=== PATIENT | female | born 1960 | race American Indian/Alaskan Native ===

== ENCOUNTER 2017-01-13 09:47 | Outpatient (CLI) | payer OTHER ==
--- NOTE | 2017-01-13 14:25 | Mammography Report ---
BILATERAL DIGITAL SCREENING MAMMOGRAM with CAD: 01/13/17 09:47:00 CLINICAL: Routine screening. COMPARISON: 03/28/14 FINDINGS: The breasts are predominately fatty with a few bilateral scattered fibroglandular densities.No mass, architectural distortion or suspicious calcifications. IMPRESSION: No mammographic evidence of malignancy. BI-RADS CATEGORY: 1 -- Negative RECOMMENDATION: Routine mammographic screening in one year. COMMENT: Patient follow-up letters are generated by our [employer] application.
== END 2017-01-13 09:48 | disposition home or self-care (01) ==
LOC: SPVWC 09:47
PROVIDERS: ATTEND Family Medicine
DX: Z12.31 Encounter for screening mammogram for malignant neoplasm of breast (principal)
CPT/HCPCS: 77067; G0202

== ENCOUNTER 2021-04-15 11:05 | Inpatient (IN) | payer OTHER ==
--- NOTE | 2021-04-15 11:29 | Emergency Department Report ---
ED Altered Mental Status HPI - General Chief Complaint: Altered Mental Status Stated Complaint: AMS Time Seen by Provider: 04/15/21 11:09 Source: EMS Mode of arrival: Stretcher Limitations: Altered Mental Status - History of Present Illness Initial Comments: 60-year-old female, history of hypertension, diabetes, seizure disorder, presents to ED with altered mental status. Last known well time 2:30 PM on yesterday. Patient's niece had made plans with the patient to take her grocery shopping this morning. When she arrived at patient's home, patient was speaking incoherently, had a apparently soiled herself. Niece states that about a year ago patient's glucose was very high. Patient able to follow directions, however speech is incoherent. Stroke alert called. MD Complaint: altered mental status -: unknown Severity: moderate Consistency of Symptoms: constant Context: diabetes, seizure disorder - Related Data Home Medications Medication Instructions Recorded Confirmed Last Taken Klor-Con M20 10 meq 04/15/21 Unknown Omeprazole 04/15/21 Unknown Singulair 04/15/21 Unknown Slow Release Iron 04/15/21 Unknown cloNIDine 0.1 mg PO 04/15/21 Unknown hydrALAZINE 50 mg PO 04/15/21 Unknown Allergies Allergy/AdvReac Type Severity Reaction Status Date / Time No Known Allergies Allergy Verified 04/15/21 13:58 ED Review of Systems ROS: Stated complaint: AMS Other details as noted in HPI Comment: Unobtainable due to pts medical conditions ED Past Medical Hx - Medications Home Medications: Home Medications Medication Instructions Recorded Confirmed Last Taken Type Klor-Con M20 10 meq 04/15/21 Unknown History Omeprazole 04/15/21 Unknown History Singulair 04/15/21 Unknown History Slow Release Iron 04/15/21 Unknown History cloNIDine 0.1 mg PO 04/15/21 Unknown History hydrALAZINE 50 mg PO 04/15/21 Unknown History ED Physical Exam - General Limitations: Altered Mental Status General appearance: alert, in no apparent distress - Head Head exam: Present: atraumatic, normocephalic - Eye Eye exam: Present: normal appearance, PERRL, EOMI - ENT ENT exam: Present: mucous membranes moist - Neck Neck exam: Present: normal inspection - Respiratory Respiratory exam: Present: normal lung sounds bilaterally. Absent: respiratory distress - Cardiovascular Cardiovascular Exam: Present: normal rhythm, tachycardia - GI/Abdominal GI/Abdominal exam: Present: soft. Absent: distended, tenderness - Extremities Exam Extremities exam: Present: normal inspection - Neurological Exam Neurological exam: Present: alert, altered, other (Slight facial droop noted, speech is unintelligible) - Psychiatric Psychiatric exam: Present: flat affect - Skin Skin exam: Present: warm, dry, intact, normal color ED Course Vital Signs 04/15/21 04/15/21 04/15/21 11:14 11:23 11:50 Temperature 98 F Pulse Rate 107 H 109 H 98 H Respiratory 16 15 Rate Blood Pressure Blood Pressure 194/97 199/97 206/121 [Right] O2 Sat by Pulse 96 96 Oximetry 04/15/21 04/15/21 04/15/21 12:02 12:30 12:47 Temperature Pulse Rate 102 H 104 H Respiratory 14 17 Rate Blood Pressure 209/115 Blood Pressure 215/108 [Right] O2 Sat by Pulse 97 96 Oximetry 04/15/21 04/15/21 04/15/21 13:01 13:15 13:31 Temperature Pulse Rate 93 H 86 90 Respiratory 22 15 16 Rate Blood Pressure 214/98 212/94 206/93 Blood Pressure [Right] O2 Sat by Pulse 94 95 96 Oximetry 04/15/21 04/15/21 04/15/21 13:45 13:58 14:01 Temperature Pulse Rate 90 81 88 Respiratory 16 17 Rate Blood Pressure 201/82 193/83 193/83 Blood Pressure [Right] O2 Sat by Pulse 96 97 Oximetry 04/15/21 04/15/21 04/15/21 14:15 14:31 14:45 Temperature Pulse Rate 84 84 86 Respiratory 14 15 16 Rate Blood Pressure 181/66 173/74 180/90 Blood Pressure [Right] O2 Sat by Pulse 95 97 96 Oximetry 04/15/21 04/15/21 04/15/21 15:01 15:15 15:31 Temperature Pulse Rate 87 86 85 Respiratory 19 15 16 Rate Blood Pressure 150/73 159/82 164/78 Blood Pressure [Right] O2 Sat by Pulse 97 96 96 Oximetry 04/15/21 04/15/21 15:45 15:51 Temperature Pulse Rate 83 84 Respiratory 16 19 Rate Blood Pressure 162/85 169/80 Blood Pressure [Right] O2 Sat by Pulse 94 94 Oximetry - Lab Data Result diagrams: 04/15/21 11:50 04/15/21 11:50 Lab Results 04/15/21 04/15/21 04/15/21 Range/Units 11:24 11:50 11:50 WBC 9.2 (4.5-11.0) K/mm3 RBC 5.43 H (3.65-5.03) M/mm3 Hgb 14.1 (10.1-14.3) gm/dl Hct 45.2 H (30.3-42.9) % MCV 83 (79-97) fl MCH 26 L (28-32) pg MCHC 31 (30-34) % RDW 15.5 H (13.2-15.2) % Plt Count 195 (140-440) K/mm3 Lymph % (Auto) 6.8 L (13.4-35.0) % [place] % (Auto) 2.9 (0.0-7.3) % Eos % (Auto) 0.0 (0.0-4.3) % Baso % (Auto) 0.5 (0.0-1.8) % Lymph # (Auto) 0.6 L (1.2-5.4) K/mm3 [place] # (Auto) 0.3 (0.0-0.8) K/mm3 Eos # (Auto) 0.0 (0.0-0.4) K/mm3 Baso # (Auto) 0.0 (0.0-0.1) K/mm3 Seg Neutrophils % 89.8 H (40.0-70.0) % Seg Neutrophils # 8.2 H (1.8-7.7) K/mm3 PT 13.0 (12.2-14.9) Sec. INR 0.88 (0.87-1.13) APTT 27.5 (24.2-36.6) Sec. Thrombin Time 20.1 H (15.1-19.6) Sec. VBG pH (7.320-7.420) Sodium (137-145) mmol/L Potassium (3.6-5.0) mmol/L Chloride (98-107) mmol/L Carbon Dioxide (22-30) mmol/L Anion Gap mmol/L BUN (7-17) mg/dL Creatinine (0.6-1.2) mg/dL Estimated GFR ml/min BUN/Creatinine Ratio % Glucose (65-100) mg/dL POC Glucose 548 H (70-105) mg/dL Ketones Quantitative (Negative) Calcium (8.4-10.2) mg/dL Total Bilirubin (0.1-1.2) mg/dL Direct Bilirubin (0-0.2) mg/dL Indirect Bilirubin mg/dL AST (5-40) units/L ALT (7-56) units/L Alkaline Phosphatase (35-129) units/L Total Creatine Kinase (30-135) units/L CK-MB (CK-2) (0.0-4.0) ng/mL CK-MB (CK-2) Rel Index (0-4) Troponin T (0.00-0.029) ng/mL Total Protein (6.3-8.2) g/dL Albumin (3.9-5) g/dL Albumin/Globulin Ratio % 04/15/21 04/15/21 04/15/21 Range/Units 11:50 11:50 11:50 WBC (4.5-11.0) K/mm3 RBC (3.65-5.03) M/mm3 Hgb (10.1-14.3) gm/dl Hct (30.3-42.9) % MCV (79-97) fl MCH (28-32) pg MCHC (30-34) % RDW (13.2-15.2) % Plt Count (140-440) K/mm3 Lymph % (Auto) (13.4-35.0) % [place] % (Auto) (0.0-7.3) % Eos % (Auto) (0.0-4.3) % Baso % (Auto) (0.0-1.8) % Lymph # (Auto) (1.2-5.4) K/mm3 [place] # (Auto) (0.0-0.8) K/mm3 Eos # (Auto) (0.0-0.4) K/mm3 Baso # (Auto) (0.0-0.1) K/mm3 Seg Neutrophils % (40.0-70.0) % Seg Neutrophils # (1.8-7.7) K/mm3 PT (12.2-14.9) Sec. INR (0.87-1.13) APTT (24.2-36.6) Sec. Thrombin Time (15.1-19.6) Sec. VBG pH 7.412 (7.320-7.420) Sodium 136 L (137-145) mmol/L Potassium 4.5 (3.6-5.0) mmol/L Chloride 99.9 (98-107) mmol/L Carbon Dioxide 23 (22-30) mmol/L Anion Gap 18 mmol/L BUN 13 (7-17) mg/dL Creatinine 0.9 (0.6-1.2) mg/dL Estimated GFR > 60 ml/min BUN/Creatinine Ratio 14 % Glucose 549 H* (65-100) mg/dL POC Glucose (70-105) mg/dL Ketones Quantitative Negative (Negative) Calcium 8.9 (8.4-10.2) mg/dL Total Bilirubin 0.20 (0.1-1.2) mg/dL Direct Bilirubin < 0.2 (0-0.2) mg/dL Indirect Bilirubin 0.0 mg/dL AST 14 (5-40) units/L ALT 15 (7-56) units/L Alkaline Phosphatase 186 H (35-129) units/L Total Creatine Kinase 46 (30-135) units/L CK-MB (CK-2) 1.3 (0.0-4.0) ng/mL CK-MB (CK-2) Rel Index 2.8 (0-4) Troponin T < 0.010 (0.00-0.029) ng/mL Total Protein 7.6 (6.3-8.2) g/dL Albumin 3.5 L (3.9-5) g/dL Albumin/Globulin Ratio 0.9 % - EKG Data -: EKG Interpreted by Ne EKG shows normal: sinus rhythm, intervals, QRS complexes Rate: normal Interpretation: nonspecific ST-T wave robert, LVH - Radiology Data Radiology results: report reviewed, image reviewed - Medical Decision Making 60-year-old female presents to ED with altered mental status. Stroke alert was called upon arrival. Patient was seen and evaluated by teleneurologist. Patient not a candidate for TPA. CTAs showed no large vessel occlusion. Patient hyperglycemic, however not in DKA. Patient was given labetalol with improvement of blood pressure. Differential also includes seizure as patient has reported history of seizure disorder. Patient was given Keppra 1000 mg load. She will be admitted by Dr. Valdes, hospitalist, for further evaluation. - Differential Diagnosis seizure, CVA, DKA Critical Care Time: Yes Critical care time in (mins) excluding proc time.: 35 Critical care attestation.: If time is entered above; I have spent that time in minutes in the direct care of this critically ill patient, excluding procedure time. Critical Care Time: 35 min ED Disposition Clinical Impression: Acute encephalopathy, Hyperglycemia, Hypertensive emergency Disposition: ADMITTED INPATIENT Is pt being admited?: Yes Condition: Stable Time of Disposition: 12:59
--- NOTE | 2021-04-15 11:47 | Cat Scan Report ---
CT HEAD WITHOUT CONTRAST INDICATION : CODE STROKE CALL [phone]. TECHNIQUE: Axial imaging performed from the skull apex through the skull base without the use of con trast. Sagittal and coronal reformatted images. All CT scans at this location are performed using C T dose reduction for ALARA by means of automated exposure control. COMPARISON: None FINDINGS: Parenchyma: There is moderate diffuse volume loss and mild chronic microvascular ischemic changes in the white matter. No acute parenchymal abnormality, hemorrhage, mass or extra-axial fluid collection is identified. No chronic infarct is detected. Ventricles: Ventricles are normal in size and appear symmetric. Bones: Previous left temporal craniectomy changes are noted, correlate with history. Sinuses: Sinuses and mastoid air cells are clear. Soft tissues: Soft tissues including the orbits appear normal. IMPRESSION: No evidence for acute ischemia, mass or hemorrhage. Chronic age-related changes as descri bed. CODE STROKE: Time of Communication (ANDROID ARCHITECT/CDT): 1040 hours Licensed Practitioner Receiving Report: Dr. Dumont Signer Name: Franck Bernal Jr, MD Signed: 04/15/2021 11:43 AM Workstation Name: [id number]
[2021-04-15 12:05] LABS: Basophils % (Auto) 0.5 % (0.0-1.8); Hematocrit 45.2 % (30.3-42.9); Hemoglobin 14.1 gm/dl (10.1-14.3); Lymphocytes # (Auto) 0.6 K/mm3 (1.2-5.4); Lymphocytes % (Auto) 6.8 % (13.4-35.0); Mean Corpuscular HGB Conc 31 % (30-34); Mean Corpuscular Volume 83 fl (79-97); Monocytes # (Auto) 0.3 K/mm3 (0.0-0.8); Monocytes % (Auto) 2.9 % (0.0-7.3); Platelet Count 195 K/mm3 (140-440); Red Blood Count 5.43 M/mm3 (3.65-5.03); Red Cell Distribution Width 15.5 % (13.2-15.2)
--- NOTE | 2021-04-15 12:09 | Emergency Department Report ---
Blank Doc - Documentation Documentation: [facility] Consult Note # Demographics Consult Type: Acute Stroke Level 2 (4.5-24 hrs) Patient Location: Emergency Room First Name: Britni Last Name: Wilfredo Date of : 1960 Age: 60 Gender: Female Facility: [facility] Time of Initial Page ( Time): 04/15/2021, 11:54 Time of Return Call ( Time): 04/15/2021, 11:54 # HPI History: 60yo F presents after last being well at 1430 yesterday by a phone call with family. When family arrived today she had incoherent speech (has occurred before with elevated glucose). BP elevated in the ED # Scores Time of exam and NIHSS ( Time): 04/15/2021, 12:04 Level of Consciousness 1a: [0] = Alert; keenly responsive LOC Questions 1b: [2] = Answers neither correctly LOC Commands 1c: [0] = Performs both tasks correctly Best Gaze 2: [0] = Normal Visual 3: [0] = No visual loss Facial Palsy 4: [1] = Minor paralysis Motor Arm Left 5a: [0] = No drift Motor Arm Right 5b: [0] = No drift Motor Leg Left 6a: [0] = No drift Motor Leg Right 6b: [0] = No drift Limb Ataxia 7: [0] = Absent Sensory 8: [0] = Normal Best Language 9: [2] = Severe aphasia Dysarthria 10: [1] = [id number] dysarthria Extinction and Inattention 11: [0] = No abnormality NIHSS Total: 6 # PMH-FH-SH Past Medical History: Diabetes hypertension seizure # Assessment Impression: Altered Mental Status # Plan Thrombolytic/Intervention: NOT IV Thrombolysis or IA Intervention candidate Thrombolytic Exclusion: > 4.5 hours Intraarterial Exclusion: clinically consistent with small vessel disease Other: I have discussed my recommendations with the referring provider Additional Recommendations: Metabolic and infectious evaluation. If no cause found then MRI brain for further eval is reasonable # Logistics Telemedicine: Interactive 2 way audio and visual telecommunication technology was utilized during this visit
[2021-04-15 12:15] LABS: INR 0.88 (0.87-1.13)
[2021-04-15 12:16] LABS: Partial Thromboplastin Time 27.5 Sec. (24.2-36.6); Thrombin Time 20.1 Sec. (15.1-19.6)
[2021-04-15] MEDS ORDERED: SODIUM CHLORIDE 0.9% 1000 ML 1,000 ML IV ONE (12:18)
--- NOTE | 2021-04-15 12:18 | Cat Scan Report ---
CTA NECK INDICATION / CLINICAL INFORMATION: 60 years Female; CODE STROKE CALL ER MAIN AT [id number] OMNI 350 100 ML stroke sx. Stroke TECHNIQUE: Thin cut axial images obtained through the head during IV bolus contrast administration. S agittal, coronal, and 3 plane MIP reconstructions performed by the technologist. NASCET type criteria used evaluate stenoses. All CT scans at this location are performed using CT dose reduction for ALAR A by means of automated exposure control. 100 cc of Omnipaque 350 was administered. COMPARISON: None available. FINDINGS: ARCH: The aortic arch and great vessels are widely patent. The left vertebral artery arises from the arch, normal variant. CAROTID ARTERIES: The visualized common and internal carotid arteries are widely patent. Minimal part ially calcified plaques are noted in the carotid bulbs. VERTEBRAL ARTERIES: The right cervical vertebral artery is not clearly identified. The left vertebral artery is widely patent. ADDITIONAL FINDINGS: Remainder of the surrounding soft tissues are grossly normal. IMPRESSION: The cervical carotid arterial structures are widely patent. The right vertebral artery is not clearly identified on CTA suggesting occlusion or severe hypoplasia /achalasia. The left vertebral artery is widely patent. CTA HEAD WITH CONTRAST HISTORY: Stroke COMPARISON: None. TECHNIQUE: Routine non-contrast CT Head, CTA of the head and post-contrast CT Head are performed. 3-D /MIP reformats postprocessed. All CT scans at this location are performed using CT dose reduction for ALARA by means of automated e xposure control CONTRAST: 100 ml of Omnipaque 350 FINDINGS: CTA Head: Intracranial vertebral arteries: The right vertebral artery is not clearly identified. The left verte bral artery is widely patent. Basilar artery: No significant abnormality. Posterior cerebral arteries: No significant abnormality. Intracranial internal carotid arteries: No significant abnormality. Anterior cerebral arteries: No significant abnormality. Middle cerebral arteries: No significant abnormality. Dural venous sinuses:Not optimally opacified. No significant abnormality. Additional findings: None. IMPRESSION: The right vertebral artery is not identified consistent with occlusion or severe hypoplasia/aplasia. The remaining intracranial arterial structures are patent with no evidence of stenosis. Signer Name: Franck Bernal Jr, MD Signed: 04/15/2021 12:13 PM Workstation Name: [id number]
[2021-04-15 12:32] LABS: BUN/Creatinine Ratio 14; Blood Urea Nitrogen 13 mg/dL (7-17); Calcium 8.9 mg/dL (8.4-10.2); Creatine Kinase MB 1.3 ng/mL (0.0-4.0); Hemolysis Index 63
[2021-04-15] MEDS ORDERED: INSULIN REGULAR, HUMAN 100 UNITS/1 ML IV ONE (12:49)
--- NOTE | 2021-04-15 12:52 | XRay Report ---
CHEST 1 VIEW 04/15/2021 11:43 AM INDICATION / CLINICAL INFORMATION: AMS. COMPARISON: None available. FINDINGS: SUPPORT DEVICES: None. HEART / MEDIASTINUM: No significant abnormality. LUNGS / PLEURA: No significant pulmonary or pleural abnormality. No pneumothorax. ADDITIONAL FINDINGS: No significant additional findings. IMPRESSION: 1. No acute findings. Signer Name: Tigre Victoria MD Signed: 04/15/2021 12:47 PM Workstation Name: [id number]
[2021-04-15] MEDS ORDERED: levETIRAcetam 1,000 MG in SODIUM CHLORIDE 0.9% 100 ML IV ONE (12:55)
[2021-04-15 13:10] LABS: Bilirubin,Urine NEG (Negative); Blood,Urine SM (Negative); Color,Urine Colorless (Yellow); RBC,Urine < 1.0 /HPF (0.0-6.0); Urobilinogen,Urine < 2.0 mg/dL (<2.0)
[2021-04-15 15:59] LABS: Alanine Aminotransferase 15 units/L (7-56); Albumin 3.5 g/dL (3.9-5)
[2021-04-15 16:06] LABS: Bilirubin,Direct < 0.2 mg/dL (0-0.2)
[2021-04-15] MEDS ORDERED: ACETAMINOPHEN 650 MG RECT SUPP PR PRN (23:05)
[2021-04-15] MEDS ORDERED: ACETAMINOPHEN 325 MG TAB PO PRN (23:06)
--- NOTE | 2021-04-15 23:56 | History and Physical Report ---
History of Present Illness Date of examination: 04/15/21 Date of admission: 04/15/21 12:59 Chief complaint: Altered sensorium for 1 day History of present illness: 60-year-old presents with altered sensorium since yesterday at 2:30 PM. Patient has a history of hypertension diabetes and seizure disorder. When the patient's niece arrived at patient's home patient was speaking incoherently and apparently soiled herself. Patient was apparently diagnosed with diabetes last year but has been noncompliant. Patient lives alone. In the emergency room stroke alert was initiated. No TPA was given. Patient has no focal deficits. Past History Past Medical History: diabetes, hyperlipidemia Past Surgical History: No surgical history Social history: Lives alone Family history: hypertension Medications and Allergies Allergies Allergy/AdvReac Type Severity Reaction Status Date / Time No Known Allergies Allergy Verified 04/15/21 13:58 Home Medications Medication Instructions Recorded Confirmed Last Taken Type Klor-Con M20 10 meq 04/15/21 Unknown History Omeprazole 04/15/21 Unknown History Singulair 04/15/21 Unknown History Slow Release Iron 04/15/21 Unknown History cloNIDine 0.1 mg PO 04/15/21 Unknown History hydrALAZINE 50 mg PO 04/15/21 Unknown History Active Meds: Active Medications Acetaminophen (Acetaminophen 650 Mg Rect Supp) 650 mg DC Q6H PRN PRN Reason: Pain, Mild (1-3) Acetaminophen (Acetaminophen 325 Mg Tab) 650 mg PO Q6H PRN PRN Reason: Pain, Mild (1-3) Insulin Human Lispro (Insulin Lispro 100 Unit/Ml) 0 unit SUB-Q ACHS MAGO; Protocol Review of Systems All systems: negative Constitutional: weight loss Neurological: change in mentation, confusion Exam - Constitutional Vitals: Temp Pulse Resp BP Pulse Ox 100.7 F H 92 H 20 168/80 98 04/15/21 19:30 04/15/21 19:30 04/15/21 23:29 04/15/21 19:30 04/15/21 23:29 General appearance: Present: no acute distress, well-nourished - EENT Eyes: Present: PERRL ENT: hearing intact, clear oral mucosa - Neck Neck: Present: supple, normal ROM - Respiratory Respiratory effort: normal Respiratory: bilateral: CTA - Cardiovascular Heart rate: 78 Rhythm: regular Heart Sounds: Present: S1 & S2. Absent: rub, click - Extremities Extremities: pulses symmetrical, No edema Peripheral Pulses: within normal limits - Abdominal General gastrointestinal: Present: soft, non-tender, non-distended, normal bowel sounds Female genitourinary: Present: normal - Integumentary Integumentary: Present: clear, warm, dry - Musculoskeletal Musculoskeletal: gait normal, strength equal bilaterally - Psychiatric Psychiatric: appropriate mood/affect, intact judgment & insight - Neurologic Neurologic: CNII-XII intact, moves all extremities HEART Score - HEART Score Troponin: Troponin T < 0.010 ng/mL (0.00-0.029) 04/15/21 11:50 Results - Labs CBC & Chem 7: 04/15/21 11:50 04/15/21 11:50 Labs: Laboratory Last Values WBC 9.2 K/mm3 (4.5-11.0) 04/15/21 11:50 RBC 5.43 M/mm3 (3.65-5.03) H 04/15/21 11:50 Hgb 14.1 gm/dl (10.1-14.3) 04/15/21 11:50 Hct 45.2 % (30.3-42.9) H 04/15/21 11:50 MCV 83 fl (79-97) 04/15/21 11:50 MCH 26 pg (28-32) L 04/15/21 11:50 MCHC 31 % (30-34) 04/15/21 11:50 RDW 15.5 % (13.2-15.2) H 04/15/21 11:50 Plt Count 195 K/mm3 (140-440) 04/15/21 11:50 Lymph % (Auto) 6.8 % (13.4-35.0) L 04/15/21 11:50 [place] % (Auto) 2.9 % (0.0-7.3) 04/15/21 11:50 Eos % (Auto) 0.0 % (0.0-4.3) 04/15/21 11:50 Baso % (Auto) 0.5 % (0.0-1.8) 04/15/21 11:50 Lymph # (Auto) 0.6 K/mm3 (1.2-5.4) L 04/15/21 11:50 [place] # (Auto) 0.3 K/mm3 (0.0-0.8) 04/15/21 11:50 Eos # (Auto) 0.0 K/mm3 (0.0-0.4) 04/15/21 11:50 Baso # (Auto) 0.0 K/mm3 (0.0-0.1) 04/15/21 11:50 Seg Neutrophils % 89.8 % (40.0-70.0) H 04/15/21 11:50 Seg Neutrophils # 8.2 K/mm3 (1.8-7.7) H 04/15/21 11:50 PT 13.0 Sec. (12.2-14.9) 04/15/21 11:50 INR 0.88 (0.87-1.13) 04/15/21 11:50 APTT 27.5 Sec. (24.2-36.6) 04/15/21 11:50 Thrombin Time 20.1 Sec. (15.1-19.6) H 04/15/21 11:50 VBG pH 7.412 (7.320-7.420) 04/15/21 11:50 Sodium 136 mmol/L (137-145) L 04/15/21 11:50 Potassium 4.5 mmol/L (3.6-5.0) 04/15/21 11:50 Chloride 99.9 mmol/L (98-107) 04/15/21 11:50 Carbon Dioxide 23 mmol/L (22-30) 04/15/21 11:50 Anion Gap 18 mmol/L 04/15/21 11:50 BUN 13 mg/dL (7-17) 04/15/21 11:50 Creatinine 0.9 mg/dL (0.6-1.2) 04/15/21 11:50 Estimated GFR > 60 ml/min 04/15/21 11:50 BUN/Creatinine Ratio 14 % 04/15/21 11:50 Glucose 549 mg/dL (65-100) H* 04/15/21 11:50 POC Glucose 284 mg/dL (70-105) H 04/15/21 20:59 Ketones Quantitative Negative (Negative) 04/15/21 11:50 Calcium 8.9 mg/dL (8.4-10.2) 04/15/21 11:50 Total Bilirubin 0.20 mg/dL (0.1-1.2) 04/15/21 11:50 Direct Bilirubin < 0.2 mg/dL (0-0.2) 04/15/21 11:50 Indirect Bilirubin 0.0 mg/dL 04/15/21 11:50 AST 14 units/L (5-40) 04/15/21 11:50 ALT 15 units/L (7-56) 04/15/21 11:50 Alkaline Phosphatase 186 units/L (35-129) H 04/15/21 11:50 Total Creatine Kinase 46 units/L (30-135) 04/15/21 11:50 CK-MB (CK-2) 1.3 ng/mL (0.0-4.0) 04/15/21 11:50 CK-MB (CK-2) Rel Index 2.8 (0-4) 04/15/21 11:50 Troponin T < 0.010 ng/mL (0.00-0.029) 04/15/21 11:50 Total Protein 7.6 g/dL (6.3-8.2) 04/15/21 11:50 Albumin 3.5 g/dL (3.9-5) L 04/15/21 11:50 Albumin/Globulin Ratio 0.9 % 04/15/21 11:50 Urine Color Colorless (Yellow) 04/15/21 13:03 Urine Turbidity Clear (Clear) 04/15/21 13:03 Urine pH 7.0 (5.0-7.0) 04/15/21 13:03 Ur Specific [place] 1.036 (1.003-1.030) H 04/15/21 13:03 Urine Protein 100 mg/dl mg/dL (Negative) 04/15/21 13:03 Urine Glucose (UA) >=500 mg/dL (Negative) 04/15/21 13:03 Urine Ketones Neg mg/dL (Negative) 04/15/21 13:03 Urine Blood Sm (Negative) 04/15/21 13:03 Urine Nitrite Neg (Negative) 04/15/21 13:03 Urine Bilirubin Neg (Negative) 04/15/21 13:03 Urine Urobilinogen < 2.0 mg/dL (<2.0) 04/15/21 13:03 Ur Leukocyte Esterase Neg (Negative) 04/15/21 13:03 Urine WBC (Auto) 1.0 /HPF (0.0-6.0) 04/15/21 13:03 Urine RBC (Auto) < 1.0 /HPF (0.0-6.0) 04/15/21 13:03 U Epithel Cells (Auto) 1.0 /HPF (0-13.0) 04/15/21 13:03 Short CBC 04/15/21 Range/Units 11:50 WBC 9.2 (4.5-11.0) K/mm3 Hgb 14.1 (10.1-14.3) gm/dl Hct 45.2 H (30.3-42.9) % Plt Count 195 (140-440) K/mm3 BMP 04/15/21 11:50 Sodium 136 L Potassium 4.5 Chloride 99.9 Carbon Dioxide 23 BUN 13 Creatinine 0.9 Glucose 549 H* Calcium 8.9 Cardiac Enzymes 04/15/21 Range/Units 11:50 Total Creatine Kinase 46 (30-135) units/L CK-MB (CK-2) 1.3 (0.0-4.0) ng/mL Troponin T < 0.010 (0.00-0.029) ng/mL Liver Function 04/15/21 Range/Units 11:50 Total Bilirubin 0.20 (0.1-1.2) mg/dL Direct Bilirubin < 0.2 (0-0.2) mg/dL AST 14 (5-40) units/L ALT 15 (7-56) units/L Alkaline Phosphatase 186 H (35-129) units/L Albumin 3.5 L (3.9-5) g/dL Urine 04/15/21 Range/Units 13:03 Urine Color Colorless (Yellow) Urine pH 7.0 (5.0-7.0) Ur Specific [place] 1.036 H (1.003-1.030) Urine Protein 100 mg/dl (Negative) mg/dL Urine Glucose (UA) >=500 (Negative) mg/dL [place]/IV: Voiding Method External Female Catheter Assessment and Plan Advance Directives: Yes (Full code) VTE prophylaxis?: Chemical Plan of care discussed with patient/family: Yes - Patient Problems (1) Acute encephalopathy Current Visit: Yes Status: Acute Plan to address problem: Etiology unclear Hyperglycemia may be a contributing factor Neurology consult requested (2) Uncontrolled diabetes mellitus Current Visit: Yes Status: Chronic Qualifiers: Diabetes mellitus type: type 2 Plan to address problem: Frequent Accu-Cheks High-dose sliding scale coverage Initiated on insulin 70/30 15 units twice a day (3) Hypertension Current Visit: Yes Status: Chronic Qualifiers: Hypertension type: primary hypertension Qualified Code(s): I10 - Essential (primary) hypertension Plan to address problem: On losartan (4) DVT prophylaxis Current Visit: Yes Status: Acute Plan to address problem: On heparin and GI prophylaxis
[2021-04-15] MEDS ORDERED: HYDROmorphone 1 MG/1 ML INJ IV PRN (23:58)
[2021-04-15] MEDS ORDERED: ONDANSETRON 4 MG/2 ML INJ IV PRN (23:58)
[2021-04-15] MEDS ORDERED: MORPHINE 2 MG/1 ML INJ IV PRN (23:58)
[2021-04-16] MEDS ORDERED: ONDANSETRON 4 MG/2 ML INJ IV PRN (00:40)
[2021-04-16] MEDS: FAMOTIDINE 20 MG/2 ML INJ IV SCH ×3 (01:01→23:02)
[2021-04-16] MEDS: SODIUM CHLORIDE 0.45% 1000 ML 1,000 ML IV SCH ×2 (01:01→14:19)
[2021-04-16] MEDS: hydrALAZINE 25 MG TAB PO SCH ×4 (01:01→23:01)
[2021-04-16] MEDS: INSULIN LISPRO 100 UNIT/ML SUB-Q SCH ×5 (01:02→17:44)
--- NOTE | 2021-04-16 08:10 | Progress Note ---
Assessment and Plan Assessment and plan: -- Acute metabolic encephalopathy Current Visit: Yes Status: Acute Probably secondary to uncontrolled blood sugars CT head no acute abnormality CTA head negative Neurochecks and supportive care Pending neurology consult PT OT ST evaluation and recommendations Neuro work-up is in progress --Uncontrolled diabetes mellitus Current Visit: Yes Status: Chronic Frequent Accu-Cheks High-dose sliding scale coverage Initiated on insulin 70/30 15 units twice a day Diabetic education nutrition education --Hypertension moderate control Current Visit: Yes Status: Chronic Continue current antihypertensives, as needed hydralazine -- DVT prophylaxis Current Visit: Yes Status: Acute On heparin and GI prophylaxis DC planning per case management; pending PT OT evaluation recommendations We will closely monitor the patient and adjust the management as needed Follow neuro evaluation and recommendation Plan of care reviewed with the patient and her nurse History Interval history: I have seen and examined the patient at the bedside Patient's chart and medications reviewed Slightly confused, not in acute distress Hospitalist Physical - Constitutional Vitals: Temp Pulse Resp BP Pulse Ox 98.8 F 81 18 132/67 90 04/16/21 03:17 04/16/21 03:17 04/16/21 03:17 04/16/21 03:17 04/16/21 03:17 General appearance: Present: no acute distress, well-nourished, other (Slightly confused) - EENT Eyes: Present: PERRL, EOM intact - Neck Neck: Present: supple, normal ROM - Respiratory Respiratory effort: normal Respiratory: bilateral: diminished, negative: rales, rhonchi, wheezing - Cardiovascular Rhythm: regular Heart Sounds: Present: S1 & S2 - Extremities Extremities: no ischemia, No edema - Abdominal General gastrointestinal: soft, non-tender, non-distended, normal bowel sounds - Integumentary Integumentary: Present: clear, warm - Psychiatric Psychiatric: other (Confused) - Neurologic Neurologic: moves all extremities (Residual weakness) HEART Score - HEART Score Troponin: Troponin T < 0.010 ng/mL (0.00-0.029) 04/15/21 11:50 Results - Labs CBC & Chem 7: 04/15/21 11:50 04/16/21 15:02 Labs: Laboratory Last Values WBC 9.2 K/mm3 (4.5-11.0) 04/15/21 11:50 RBC 5.43 M/mm3 (3.65-5.03) H 04/15/21 11:50 Hgb 14.1 gm/dl (10.1-14.3) 04/15/21 11:50 Hct 45.2 % (30.3-42.9) H 04/15/21 11:50 MCV 83 fl (79-97) 04/15/21 11:50 MCH 26 pg (28-32) L 04/15/21 11:50 MCHC 31 % (30-34) 04/15/21 11:50 RDW 15.5 % (13.2-15.2) H 04/15/21 11:50 Plt Count 195 K/mm3 (140-440) 04/15/21 11:50 Lymph % (Auto) 6.8 % (13.4-35.0) L 04/15/21 11:50 [place] % (Auto) 2.9 % (0.0-7.3) 04/15/21 11:50 Eos % (Auto) 0.0 % (0.0-4.3) 04/15/21 11:50 Baso % (Auto) 0.5 % (0.0-1.8) 04/15/21 11:50 Lymph # (Auto) 0.6 K/mm3 (1.2-5.4) L 04/15/21 11:50 [place] # (Auto) 0.3 K/mm3 (0.0-0.8) 04/15/21 11:50 Eos # (Auto) 0.0 K/mm3 (0.0-0.4) 04/15/21 11:50 Baso # (Auto) 0.0 K/mm3 (0.0-0.1) 04/15/21 11:50 Seg Neutrophils % 89.8 % (40.0-70.0) H 04/15/21 11:50 Seg Neutrophils # 8.2 K/mm3 (1.8-7.7) H 04/15/21 11:50 PT 13.0 Sec. (12.2-14.9) 04/15/21 11:50 INR 0.88 (0.87-1.13) 04/15/21 11:50 APTT 27.5 Sec. (24.2-36.6) 04/15/21 11:50 Thrombin Time 20.1 Sec. (15.1-19.6) H 04/15/21 11:50 VBG pH 7.412 (7.320-7.420) 04/15/21 11:50 Sodium 136 mmol/L (137-145) L 04/15/21 11:50 Potassium 4.5 mmol/L (3.6-5.0) 04/15/21 11:50 Chloride 99.9 mmol/L (98-107) 04/15/21 11:50 Carbon Dioxide 23 mmol/L (22-30) 04/15/21 11:50 Anion Gap 18 mmol/L 04/15/21 11:50 BUN 13 mg/dL (7-17) 04/15/21 11:50 Creatinine 0.9 mg/dL (0.6-1.2) 04/15/21 11:50 Estimated GFR > 60 ml/min 04/15/21 11:50 BUN/Creatinine Ratio 14 % 04/15/21 11:50 Glucose 549 mg/dL (65-100) H* 04/15/21 11:50 POC Glucose 374 mg/dL (70-105) H 04/16/21 06:10 Ketones Quantitative Negative (Negative) 04/15/21 11:50 Calcium 8.9 mg/dL (8.4-10.2) 04/15/21 11:50 Total Bilirubin 0.20 mg/dL (0.1-1.2) 04/15/21 11:50 Direct Bilirubin < 0.2 mg/dL (0-0.2) 04/15/21 11:50 Indirect Bilirubin 0.0 mg/dL 04/15/21 11:50 AST 14 units/L (5-40) 04/15/21 11:50 ALT 15 units/L (7-56) 04/15/21 11:50 Alkaline Phosphatase 186 units/L (35-129) H 04/15/21 11:50 Total Creatine Kinase 46 units/L (30-135) 04/15/21 11:50 CK-MB (CK-2) 1.3 ng/mL (0.0-4.0) 04/15/21 11:50 CK-MB (CK-2) Rel Index 2.8 (0-4) 04/15/21 11:50 Troponin T < 0.010 ng/mL (0.00-0.029) 04/15/21 11:50 Total Protein 7.6 g/dL (6.3-8.2) 04/15/21 11:50 Albumin 3.5 g/dL (3.9-5) L 04/15/21 11:50 Albumin/Globulin Ratio 0.9 % 04/15/21 11:50 Urine Color Colorless (Yellow) 04/15/21 13:03 Urine Turbidity Clear (Clear) 04/15/21 13:03 Urine pH 7.0 (5.0-7.0) 04/15/21 13:03 Ur Specific [place] 1.036 (1.003-1.030) H 04/15/21 13:03 Urine Protein 100 mg/dl mg/dL (Negative) 04/15/21 13:03 Urine Glucose (UA) >=500 mg/dL (Negative) 04/15/21 13:03 Urine Ketones Neg mg/dL (Negative) 04/15/21 13:03 Urine Blood Sm (Negative) 04/15/21 13:03 Urine Nitrite Neg (Negative) 04/15/21 13:03 Urine Bilirubin Neg (Negative) 04/15/21 13:03 Urine Urobilinogen < 2.0 mg/dL (<2.0) 04/15/21 13:03 Ur Leukocyte Esterase Neg (Negative) 04/15/21 13:03 Urine WBC (Auto) 1.0 /HPF (0.0-6.0) 04/15/21 13:03 Urine RBC (Auto) < 1.0 /HPF (0.0-6.0) 04/15/21 13:03 U Epithel Cells (Auto) 1.0 /HPF (0-13.0) 04/15/21 13:03 Knott/IV: Voiding Method External Female Catheter Active Medications - Current Medications Current Medications: Generic Name Dose Route Start Last Admin Trade Name Freq PRN Reason Stop Dose Admin Acetaminophen 650 mg 04/15/21 23:05 04/16/21 01:00 Acetaminophen 650 Mg Rect Supp [place] 650 mg Q6H PRN Administration Pain, Mild (1-3) Acetaminophen 650 mg 04/15/21 23:58 Acetaminophen 325 Mg Tab PO Q4H PRN Pain MILD(1-3)/Fever >100.5/[place] Famotidine 20 mg 04/16/21 00:00 04/16/21 01:01 Famotidine 20 Mg/2 Ml Inj IV 20 mg BID MAGO Administration Heparin Sodium (Porcine) 5,000 unit 04/16/21 10:00 Heparin 5,000 Unit/1 Ml Vial SUB-Q Q12HR [facility] Hydralazine HCl 50 mg 04/15/21 23:45 04/16/21 06:13 Hydralazine 25 Mg Tab PO Not Given Q8HR [facility] Hydromorphone HCl 0.5 mg 04/15/21 23:58 Hydromorphone 1 Mg/1 Ml Inj IV Q3H PRN Pain , Severe (7-10) Sodium Chloride 1,000 mls @ 125 mls/hr 04/15/21 23:45 04/16/21 01:01 Nacl 0.45% 1000 Ml IV 125 mls/hr DIRECT MAGO Administration Ceftriaxone Sodium 2 gm in 100 mls @ 200 mls/hr 04/16/21 10:00 Rocephin/Ns 2 Gm/100 Ml IV Q24HR [facility] Protocol Insulin Human Isoph/Insulin Regular 15 unit 04/16/21 08:30 Insulin Nph/Regular 70/30 Inj SUB-Q BIDDIAB [facility] Insulin Human Lispro 0 unit 04/16/21 01:00 04/16/21 06:17 Insulin Lispro 100 Unit/Ml SUB-Q 10 unit Q4H [facility] Administration Protocol Montelukast Sodium 10 mg 04/16/21 22:00 Montelukast 10 Mg Tab PO QHS [facility] Morphine Sulfate 2 mg 04/15/21 23:58 Morphine 2 Mg/1 Ml Inj IV Q4H PRN Pain, Moderate (4-6) Ondansetron HCl 4 mg 04/16/21 00:40 Ondansetron 4 Mg/2 Ml Inj IV Q8H PRN Nausea And Vomiting Sodium Chloride 10 ml 04/16/21 10:00 Sodium Chloride 0.9% 10 Ml Flush Syringe IV BID [facility] Sodium Chloride 10 ml 04/15/21 23:58 Sodium Chloride 0.9% 10 Ml Flush Syringe IV PRN PRN LINE FLUSH
--- NOTE | 2021-04-16 08:36 | Consultation ---
History of Present Illness Consult date: 04/16/21 Reason for Consult: Altered mentation History of present illness: Altered sensorium for 1 day History of present illness: 60-year-old presents with altered sensorium since yesterday at 2:30 PM. Patient has a history of hypertension diabetes and seizure disorder. According to nice pt. lives alone had similar event of confusion last January due to none compliance with her insulin and had seizure was started on keppra , yesterday family noted pt. confused and she was drooling left side she wet self and was disoriented Patient was apparently diagnosed with diabetes last year but has been noncompliant. Patient lives alone. In the emergency room stroke alert was initiated. No TPA was given. Patient has no focal deficits. today she continue to be confused and is with slurred speech In Er CT brain showed no acute event CTA brain and neck is remarkable for decrese flow in r. vertebral a. exam today showed slight right facial droop and left eye lid droop ? not sure if remote MRI brain is ordered EEG is pending Review pt. medication bottles showed all are empty with no refill !! suggestive pt. with poor compliance with medications Past History Past Medical History: diabetes, hyperlipidemia, Seizure Past Surgical History: No surgical history Social history: Lives alone Family history: hypertension Medications and Allergies Allergies Allergy/AdvReac Type Severity Reaction Status Date / Time No Known Allergies Allergy Verified 04/15/21 13:58 Home Medications Medication Instructions Recorded Confirmed Last Taken Type Klor-Con M20 10 meq 04/15/21 Unknown History Omeprazole 04/15/21 Unknown History Singulair 04/15/21 Unknown History Slow Release Iron 04/15/21 Unknown History cloNIDine 0.1 mg PO 04/15/21 Unknown History hydrALAZINE 50 mg PO 04/15/21 Unknown History Active Meds: Active Medications Acetaminophen (Acetaminophen 650 Mg Rect Supp) 650 mg [place] Q6H PRN PRN Reason: Pain, Mild (1-3) Acetaminophen (Acetaminophen 325 Mg Tab) 650 mg PO Q6H PRN PRN Reason: Pain, Mild (1-3) Insulin Human Lispro (Insulin Lispro 100 Unit/Ml) 0 unit SUB-Q ACHS [facility]; Protocol Review of Systems All systems: negative Constitutional: weight loss Neurological: change in mentation, confusion Past History Past Medical History: diabetes, hyperlipidemia Past Surgical History: No surgical history Social history: Lives alone Family history: hypertension Medications and Allergies Allergies Allergy/AdvReac Type Severity Reaction Status Date / Time No Known Allergies Allergy Verified 04/15/21 13:58 Home Medications Medication Instructions Recorded Confirmed Last Taken Type Klor-Con M20 10 meq 04/15/21 Unknown History Omeprazole 04/15/21 Unknown History Singulair 04/15/21 Unknown History Slow Release Iron 04/15/21 Unknown History cloNIDine 0.1 mg PO 04/15/21 Unknown History hydrALAZINE 50 mg PO 04/15/21 Unknown History Active Meds: Active Medications Acetaminophen (Acetaminophen 650 Mg Rect Supp) 650 mg OK Q6H PRN PRN Reason: Pain, Mild (1-3) Last Admin: 04/16/21 01:00 Dose: 650 mg Documented by: Acetaminophen (Acetaminophen 325 Mg Tab) 650 mg PO Q4H PRN PRN Reason: Pain MILD(1-3)/Fever >100.5/[place] Famotidine (Famotidine 20 Mg/2 Ml Inj) 20 mg IV BID MAGO Last Admin: 04/16/21 01:01 Dose: 20 mg Documented by: Heparin Sodium (Porcine) (Heparin 5,000 Unit/1 Ml Vial) 5,000 unit SUB-Q Q12HR [facility] Hydralazine HCl (Hydralazine 25 Mg Tab) 50 mg PO Q8HR [facility] Last Admin: 04/16/21 06:13 Dose: Not Given Documented by: Hydromorphone HCl (Hydromorphone 1 Mg/1 Ml Inj) 0.5 mg IV Q3H PRN PRN Reason: Pain , Severe (7-10) Sodium Chloride (Nacl 0.45% 1000 Ml) 1,000 mls @ 125 mls/hr IV DIRECT [facility]O Last Admin: 04/16/21 01:01 Dose: 125 mls/hr Documented by: Ceftriaxone Sodium (Rocephin/Ns 2 Gm/100 Ml) 2 gm in 100 mls @ 200 mls/hr IV Q24HR [facility]; Protocol Insulin Human Isoph/Insulin Regular (Insulin Nph/Regular 70/30 Inj) 15 unit SUB-Q BIDDIAB [facility] Insulin Human Lispro (Insulin Lispro 100 Unit/Ml) 0 unit SUB-Q Q4H [facility]; Protocol Last Admin: 04/16/21 06:17 Dose: 10 unit Documented by: Montelukast Sodium (Montelukast 10 Mg Tab) 10 mg PO QHS [facility] Morphine Sulfate (Morphine 2 Mg/1 Ml Inj) 2 mg IV Q4H PRN PRN Reason: Pain, Moderate (4-6) Ondansetron HCl (Ondansetron 4 Mg/2 Ml Inj) 4 mg IV Q8H PRN PRN Reason: Nausea And Vomiting Sodium Chloride (Sodium Chloride 0.9% 10 Ml Flush Syringe) 10 ml IV BID MAGO Sodium Chloride (Sodium Chloride 0.9% 10 Ml Flush Syringe) 10 ml IV PRN PRN PRN Reason: LINE FLUSH Physical Examination - Vital Signs Vital Signs: Vital Signs Temp Pulse Resp BP Pulse Ox 98 F 107 H 16 194/97 96 04/15/21 11:14 04/15/21 11:14 04/15/21 11:14 04/15/21 11:14 04/15/21 11:14 - Constitutional General appearance: uncomfortable, other (slightly confused) - EENT EENT: Present: PERRL, mucous membranes moist - Respiratory Respiratory: Present: chest non-tender, lungs clear, rhonchi - Cardiovascular Cardiovascular: Present: regular rate, normal S1, normal S2 Extremities: Present: no peripheral edema bilatateraly, no clubbing, cyanosis - Gastrointestinal Gastrointestinal: Present: normoactive bowel sounds - Integumentary Integumentary: Present: normal - Neurologic Cranial nerve examination: PERRL, EOMI, other (slight left eye lid shante , with pupils reactive bialteral she is with slight right facial droop , no visual deficit is noted, speech is slurred) Detailed motor examination: grossly full strength in - Psychiatric Psychiatric: Present: other (she is oriented to place and month not day knows her birthdate.) - Level of Consciousness 1a. Level of Consciousness: alert/keenly responsive - LOC Questions 1b. LOC Questions: answers 1 question correctly - LOC Command 1c. LOC Commands: performs tasks correctly - Best Gaze 2. Best Gaze: normal - Visual 3. Visual: no visual loss - Facial Palsy 4. Facial Palsy: minor paralysis - Motor Arm 5a. Motor Arm Left: no drift 5b. Motor Arm Right: no drift - Motor Leg 6a. Motor Leg Left: no drift 6b. Motor Leg Right: no drift - Limb Ataxia 7. Limb Ataxia: absent - Sensory 8. Sensory: normal - Best Language 9. Best Language: no aphasia - Dysarthria 10. Dysarthria: normal - Extinction and Inattention 11. Extinction/Inattention: no abnormality - Scoring Total Score: 2 Stroke Severity: Minor Stroke Results - Laboratory Findings CBC and BMP: 04/15/21 11:50 04/15/21 11:50 Abnormal Lab Findings: Abnormal Labs 04/15/21 04/15/21 04/15/21 11:24 11:50 11:50 RBC 5.43 H Hct 45.2 H MCH 26 L RDW 15.5 H Lymph % (Auto) 6.8 L Lymph # (Auto) 0.6 L Seg Neutrophils % 89.8 H Seg Neutrophils # 8.2 H Thrombin Time 20.1 H Sodium Glucose POC Glucose 548 H Alkaline Phosphatase Albumin Ur Specific [place] 04/15/21 04/15/21 04/15/21 11:50 11:50 13:03 RBC Hct MCH RDW Lymph % (Auto) Lymph # (Auto) Seg Neutrophils % Seg Neutrophils # Thrombin Time Sodium 136 L Glucose 549 H* POC Glucose Alkaline Phosphatase 186 H Albumin 3.5 L Ur Specific [place] 1.036 H 04/15/21 04/15/21 04/16/21 15:32 20:59 06:10 RBC Hct MCH RDW Lymph % (Auto) Lymph # (Auto) Seg Neutrophils % Seg Neutrophils # Thrombin Time Sodium Glucose POC Glucose 279 H 284 H 374 H Alkaline Phosphatase Albumin Ur Specific [place] Assessment and Plan Assessment and Plan Advance Directives: Yes (Full code) VTE prophylaxis?: Chemical Plan of care discussed with patient/family: Yes - Patient Problems # Acute encephalopathy at home -Nice noted drooling and Urinary incontinence and she is confused with the possibility of seizure can not be excluded -Poor compliance with medications -she lives alone -CT brain is unremarkable -CTA showed right vertebral stenosis -MRI brain is pending -NIH#2 -EEG is pending -ASA 325 mg daily -LDL is pending -Lipitor 40 mg -PT/ST evaluate -Keppra 750 mg BID -Seizure precaution , No driving # Uncontrolled diabetes mellitus/ NONE keto acidotic hyperglycemia -Frequent Accu-Cheks -High-dose sliding scale coverage -Initiated on insulin 70/30 15 units twice a day -A1C pending # Hypertension -On losartan # DVT prophylaxis On heparin and GI prophylaxis PLAN 1- As above 2-findings D/W her Nice 3- bench worker apprentice to see 4- Seizure precaution 5- Not to stay alone at home , no driving 6- comply with medications will follow
--- NOTE | 2021-04-16 08:38 | Electrocardiograph Report ---
[facility] Test Date: 2021-04-15 Test Time: 12:10:52 Pat Name: KWAKU PICKARD Department: Room: A466 Gender: F Sales Program Coordinator: ENRIKE : 1960 Requested By: MARLENI WILSON Order Number: [id number] Reading MD: Jimmie Pace Measurements Intervals [place] Rate: 99 P: 32 GA: 175 QRS: -1 QRSD: 91 T: -17 QT: 351 QTc: 450 Interpretive Statements Sinus rhythm Probable left atrial enlargement Left ventricular hypertrophy nonspecific st-t Borderline T abnormalities, diffuse leads No previous ECG available for comparison Electronically Signed On 04-16-2021 8:38:09 EDT by Jimmie Pace
[2021-04-16] MEDS ORDERED: cefTRIAXone/NS 2 GM/100 ML 2 GM/100 ML BAG IV SCH (10:00)
[2021-04-16] MEDS ORDERED: LORazepam 2 MG/ML VIAL IV SCH (10:00)
[2021-04-16] MEDS: INSULIN NPH/REGULAR 70/30 INJ SUB-Q SCH ×2 (11:50→17:45)
[2021-04-16] MEDS: HEPARIN 5,000 UNIT/1 ML VIAL SUB-Q SCH ×2 (11:52→23:02)
[2021-04-16] MEDS: ASPIRIN EC 325 MG TAB PO SCH (14:13)
[2021-04-16] MEDS: levETIRAcetam 500 MG/5 ML ORAL LIQD PO SCH ×2 (14:13→23:01)
--- NOTE | 2021-04-16 15:32 | Magnetic Resonance Report ---
MRI BRAIN WITHOUT CONTRAST INDICATION / CLINICAL INFORMATION: acute encephalopathy. TECHNIQUE: Multiplanar, multisequence MR images of the brain were obtained. COMPARISON: CT dated 04/15/2021. FINDINGS: Limitations: Patient was unable to cooperate for this study. Patient motion artifact is a l imiting factor on this examination. BRAIN / INTRACRANIAL CONTENTS: Ventricles and cortical sulci are normal to mildly enlarged given the patient's age of 60 years.. There is no mass effect. No evidence of intracranial hemorrhage or extra- axial fluid collection is seen. No significant areas of abnormal brain parenchymal signal intensity a re identified. There is no indication of remote cortical infarction. Diffusion weighted scans are neg ative. There is no indication of acute ischemic injury. The brainstem and cerebellum have an unremarkable appearance. MIDLINE STRUCTURES:No abnormalities are seen to involve the pituitary gland. Pineal region has an unr emarkable appearance. CRANIOCERVICAL JUNCTION: No abnormalities are identified at the craniocervical junction. VASCULAR FLOW-VOIDS: Normal flow-voids are present within the major intracranial vessels. ORBITS: The orbits have an unremarkable appearance. SINUSES / MASTOIDS: There is no indication of inflammatory disease in the paranasal sinuses or mastoi d air cells. IMPRESSION: 1. No significant abnormality on MRI brain without contrast. 2. Study is somewhat limited by patient motion artifact. Signer Name: Steve Acharya MD Signed: 04/16/2021 3:28 PM Workstation Name: [id number]
[2021-04-16 15:59] LABS: BUN/Creatinine Ratio 12; Blood Urea Nitrogen 12 mg/dL (7-17); Calcium 8.5 mg/dL (8.4-10.2); Chol/HDL Ratio 2.29 %; HDL Cholesterol 48 mg/dL (40-59); Hemolysis Index 6; LDL Cholesterol,Direct 47 mg/dL (50-130)
[2021-04-16] MEDS ORDERED: POTASSIUM CHLORIDE ER 20 MEQ TAB PO ONE (22:12)
[2021-04-16] MEDS: MONTELUKAST 10 MG TAB PO SCH (23:02)
[2021-04-16] MEDS: INSULIN REGULAR, HUMAN 100 UNITS/1 ML SUB-Q SCH (23:03)
[2021-04-16] MEDS ORDERED: INSULIN LISPRO 100 UNIT/ML SUB-Q SCH (23:05)
[2021-04-16] MEDS ORDERED: POTASSIUM CHLORIDE 20 MEQ PACKET PO ONE (23:15)
[2021-04-17] MEDS: hydrALAZINE 25 MG TAB PO SCH ×3 (05:24→22:55)
[2021-04-17 06:42] LABS: Alanine Aminotransferase 13 units/L (7-56); Albumin 2.9 g/dL (3.9-5); BUN/Creatinine Ratio 15; Blood Urea Nitrogen 15 mg/dL (7-17); Calcium 8.6 mg/dL (8.4-10.2); Hemolysis Index 3
[2021-04-17 08:50] LABS: Basophils # (Auto) 0.1 K/mm3 (0.0-0.1); Basophils % (Auto) 0.7 % (0.0-1.8); Eosinophils # (Auto) 0.1 K/mm3 (0.0-0.4); Eosinophils % (Auto) 1.5 % (0.0-4.3); Hemoglobin 12.1 gm/dl (10.1-14.3); Lymphocytes # (Auto) 2.4 K/mm3 (1.2-5.4); Lymphocytes % (Auto) 29.5 % (13.4-35.0); Mean Corpuscular HGB Conc 33 % (30-34); Mean Corpuscular Volume 81 fl (79-97); Monocytes # (Auto) 0.4 K/mm3 (0.0-0.8); Monocytes % (Auto) 5.1 % (0.0-7.3); Platelet Count 189 K/mm3 (140-440); Red Blood Count 4.58 M/mm3 (3.65-5.03); Red Cell Distribution Width 15.6 % (13.2-15.2)
--- NOTE | 2021-04-17 09:58 | Progress Note ---
Assessment and Plan Assessment and Plan Advance Directives: Yes (Full code) VTE prophylaxis?: Chemical Plan of care discussed with patient/family: Yes - Patient Problems # Acute encephalopathy at home / TIA can not be excluded/ and or seizure -Nice noted drooling and Urinary incontinence and she is confused with the possibility of seizure can not be excluded -Poor compliance with medications -she lives alone -CT brain is unremarkable -CTA showed right vertebral stenosis -MRI brain showed no acute event . -NIH#2-- today NIH#0-1 related to slight confusion -EEG is pending -ASA 325 mg daily -LDL #47 -Lipitor 40 mg -PT/ST evaluate -Keppra 750 mg BID -Seizure precaution , No driving # Uncontrolled diabetes mellitus/ NONE keto acidotic hyperglycemia -Frequent Accu-Cheks -High-dose sliding scale coverage -Initiated on insulin 70/30 15 units twice a day -A1C #12.4 # Hypertension -On losartan # DVT prophylaxis On heparin and GI prophylaxis PLAN 1- As above 2-findings D/W her Nice 3- community mental health worker to see pt. not to be home alone 4- Seizure precaution 5- Not to stay alone at home , no driving d/w pt. 6- comply with medications 7- MRI showed no acute event ,EEG is pending 8- ASA 325 mg daily and lipitor 40 mg 9- comply with Keppra 750 mg bid 10 -Suger today is #[id number] will follow as needed Subjective Date of service: 04/17/21 Principal diagnosis: confusion and hyperglycemia with possible witnessed seizure Interval history: more alert interactive today no seizure slurred speech improved as well as eye drooping no clear facial asymmetry is noted she still does not remember day but knows month and president name MRI is with no acute findings EEG still pending pt. does not drive since her car is broken -- she is instructed not to drive and take her medications as Rx and not to be alone at home !!! all D/W her nice yesterday Objective - Vital Sign Vital Signs - 12hr 04/16/21 04/16/21 04/16/21 22:20 23:18 23:20 Temperature 97.2 F L Pulse Rate 86 Respiratory 16 Rate Blood Pressure 169/75 O2 Sat by Pulse 96 97 97 Oximetry 04/17/21 04/17/21 04/17/21 03:10 07:19 08:27 Temperature 97.7 F 98.6 F Pulse Rate 84 89 Respiratory 16 18 Rate Blood Pressure 165/83 123/66 147/89 O2 Sat by Pulse 96 96 Oximetry - General Apperance Constitutional: comfortable - EENT EENT: PERRL, mucous membranes moist - Respiratory Respiratory: chest non-tender, lungs clear, rhonchi - Cardiovascular Cardiovascular: regular rate, normal S1, normal S2 Extremities: no peripheral edema bilat, no clubbing, cyanosis - Gastrointestinal Gastrointestinal: normoactive bowel sounds - Integumentary Integumentary: normal - Neurologic Cranial nerve examination: PERRL, EOMI, intact Speech examination: intact Detailed motor examination: grossly full strength in - Laboratory Findings CBC and BMP: 04/17/21 05:52 04/17/21 05:52 Abnormal Lab Findings: Abnormal Labs 04/15/21 04/15/21 04/15/21 11:24 11:50 11:50 RBC 5.43 H Hct 45.2 H MCH 26 L RDW 15.5 H Lymph % (Auto) 6.8 L Lymph # (Auto) 0.6 L Seg Neutrophils % 89.8 H Seg Neutrophils # 8.2 H Thrombin Time 20.1 H Sodium Potassium Glucose POC Glucose 548 H Hemoglobin A1c Alkaline Phosphatase Total Protein Albumin LDL Cholesterol Direct Ur Specific [place] 04/15/21 04/15/21 04/15/21 11:50 11:50 13:03 RBC Hct MCH RDW Lymph % (Auto) Lymph # (Auto) Seg Neutrophils % Seg Neutrophils # Thrombin Time Sodium 136 L Potassium Glucose 549 H* POC Glucose Hemoglobin A1c Alkaline Phosphatase 186 H Total Protein Albumin 3.5 L LDL Cholesterol Direct Ur Specific [place] 1.036 H 04/15/21 04/15/21 04/16/21 15:32 20:59 06:10 RBC Hct MCH RDW Lymph % (Auto) Lymph # (Auto) Seg Neutrophils % Seg Neutrophils # Thrombin Time Sodium Potassium Glucose POC Glucose 279 H 284 H 374 H Hemoglobin A1c Alkaline Phosphatase Total Protein Albumin LDL Cholesterol Direct Ur Specific [place] 04/16/21 04/16/21 04/16/21 08:09 11:37 15:02 RBC Hct MCH RDW Lymph % (Auto) Lymph # (Auto) Seg Neutrophils % Seg Neutrophils # Thrombin Time Sodium Potassium 3.3 L D Glucose 293 H POC Glucose 322 H 275 H Hemoglobin A1c Alkaline Phosphatase Total Protein Albumin LDL Cholesterol Direct 47 L Ur Specific [place] 04/16/21 04/17/21 04/17/21 15:32 05:52 05:52 RBC Hct MCH 26 L RDW 15.6 H Lymph % (Auto) Lymph # (Auto) Seg Neutrophils % Seg Neutrophils # Thrombin Time Sodium Potassium Glucose 207 H POC Glucose 271 H Hemoglobin A1c Alkaline Phosphatase Total Protein 6.2 L Albumin 2.9 L LDL Cholesterol Direct Ur Specific [place] 04/17/21 05:52 RBC Hct MCH RDW Lymph % (Auto) Lymph # (Auto) Seg Neutrophils % Seg Neutrophils # Thrombin Time Sodium Potassium Glucose POC Glucose Hemoglobin A1c 12.4 H Alkaline Phosphatase Total Protein Albumin LDL Cholesterol Direct Ur Specific [place]
[2021-04-17] MEDS: INSULIN REGULAR, HUMAN 100 UNITS/1 ML SUB-Q SCH ×4 (10:20→22:54)
[2021-04-17] MEDS: levETIRAcetam 500 MG/5 ML ORAL LIQD PO SCH ×2 (10:21→22:55)
[2021-04-17] MEDS: ASPIRIN EC 325 MG TAB PO SCH (10:21)
[2021-04-17] MEDS: INSULIN NPH/REGULAR 70/30 INJ SUB-Q SCH ×2 (10:21→17:37)
[2021-04-17] MEDS: HEPARIN 5,000 UNIT/1 ML VIAL SUB-Q SCH ×2 (10:21→22:54)
[2021-04-17] MEDS: FAMOTIDINE 20 MG/2 ML INJ IV SCH ×2 (10:22→22:54)
--- NOTE | 2021-04-17 16:53 | Progress Note ---
Assessment and Plan Assessment and plan: -- Acute metabolic encephalopathy Current Visit: Yes Status: Acute Probably secondary to uncontrolled blood sugars CT head no acute abnormality CTA head negative MRI brain; no significant abnormality noted limited study due to motion artifact. EEG; pending Neurochecks and supportive care Neurology following PT OT ST evaluation and recommendations Follow PT OT evaluation recommendation Possible subacute/SNF placement versus home with home health --Uncontrolled diabetes mellitus /A1c 12.4 Current Visit: Yes Status: Chronic Frequent Accu-Cheks High-dose sliding scale coverage Initiated on insulin 70/30 15 units twice a day Diabetic education nutrition education --Hypertension moderate control Current Visit: Yes Status: Chronic Continue current antihypertensives, as needed hydralazine --Severe protein calorie malnutrition/hypoalbuminemia Current Visit: Yes Status: Chronic Nutrition supplements, supportive care Nutrition consult - DVT prophylaxis Current Visit: Yes Status: Acute On heparin and GI prophylaxis DC planning per case management; pending PT OT evaluation recommendations We will closely monitor the patient and adjust the management as needed Plan of care reviewed with the patient and her nurse as well as case management team I will try to reach out to the family and update patient's condition Follow neuro evaluation and recommendation Plan of care reviewed with the patient and her nurse 04/16/2021; patient CT head without contrast CTA head negative for acute abnormalities MRI brain done today waiting report, neurology evaluation noted and appreciated 04/17/2021; patient will get PT OT evaluation and recommendations MRI brain no acute abnormality, possible placement versus home with home health when stable History Interval history: I have seen and examined the patient at the bedside this afternoon Patient's chart and medications reviewed Patient is slightly confused slow speech Responding appropriately to simple questions Hospitalist Physical - Constitutional Vitals: Temp Pulse Resp BP Pulse Ox 98.6 F 80 18 163/77 99 04/17/21 12:06 04/17/21 12:06 04/17/21 12:06 04/17/21 12:06 04/17/21 12:06 General appearance: Present: no acute distress, well-nourished, other (Slightly confused) - EENT Eyes: Present: PERRL, EOM intact - Neck Neck: Present: supple, normal ROM - Respiratory Respiratory effort: normal Respiratory: bilateral: diminished, negative: rales, rhonchi, wheezing - Cardiovascular Rhythm: regular Heart Sounds: Present: S1 & S2 - Extremities Extremities: no ischemia, No edema - Abdominal General gastrointestinal: soft, non-tender, non-distended, normal bowel sounds - Integumentary Integumentary: Present: clear, warm - Psychiatric Psychiatric: cooperative, other (Confused at times) - Neurologic Neurologic: moves all extremities HEART Score - HEART Score Troponin: Troponin T < 0.010 ng/mL (0.00-0.029) 04/15/21 11:50 Results - Labs CBC & Chem 7: 04/17/21 05:52 04/17/21 05:52 Labs: Laboratory Last Values WBC 8.1 K/mm3 (4.5-11.0) 04/17/21 05:52 RBC 4.58 M/mm3 (3.65-5.03) 04/17/21 05:52 Hgb 12.1 gm/dl (10.1-14.3) 04/17/21 05:52 Hct 37.0 % (30.3-42.9) D 04/17/21 05:52 MCV 81 fl (79-97) 04/17/21 05:52 MCH 26 pg (28-32) L 04/17/21 05:52 MCHC 33 % (30-34) 04/17/21 05:52 RDW 15.6 % (13.2-15.2) H 04/17/21 05:52 Plt Count 189 K/mm3 (140-440) 04/17/21 05:52 Lymph % (Auto) 29.5 % (13.4-35.0) 04/17/21 05:52 [place] % (Auto) 5.1 % (0.0-7.3) 04/17/21 05:52 Eos % (Auto) 1.5 % (0.0-4.3) 04/17/21 05:52 Baso % (Auto) 0.7 % (0.0-1.8) 04/17/21 05:52 Lymph # (Auto) 2.4 K/mm3 (1.2-5.4) 04/17/21 05:52 [place] # (Auto) 0.4 K/mm3 (0.0-0.8) 04/17/21 05:52 Eos # (Auto) 0.1 K/mm3 (0.0-0.4) 04/17/21 05:52 Baso # (Auto) 0.1 K/mm3 (0.0-0.1) 04/17/21 05:52 Seg Neutrophils % 63.2 % (40.0-70.0) 04/17/21 05:52 Seg Neutrophils # 5.1 K/mm3 (1.8-7.7) 04/17/21 05:52 PT 13.0 Sec. (12.2-14.9) 04/15/21 11:50 INR 0.88 (0.87-1.13) 04/15/21 11:50 APTT 27.5 Sec. (24.2-36.6) 04/15/21 11:50 Thrombin Time 20.1 Sec. (15.1-19.6) H 04/15/21 11:50 VBG pH 7.412 (7.320-7.420) 04/15/21 11:50 Sodium 141 mmol/L (137-145) 04/17/21 05:52 Potassium 3.6 mmol/L (3.6-5.0) 04/17/21 05:52 Chloride 106.5 mmol/L (98-107) 04/17/21 05:52 Carbon Dioxide 23 mmol/L (22-30) 04/17/21 05:52 Anion Gap 15 mmol/L 04/17/21 05:52 BUN 15 mg/dL (7-17) 04/17/21 05:52 Creatinine 1.0 mg/dL (0.6-1.2) 04/17/21 05:52 Estimated GFR > 60 ml/min 04/17/21 05:52 BUN/Creatinine Ratio 15 % 04/17/21 05:52 Glucose 207 mg/dL (65-100) H 04/17/21 05:52 POC Glucose 83 mg/dL (70-105) 04/16/21 21:18 Hemoglobin A1c 12.4 % (4-6) H 04/17/21 05:52 Ketones Quantitative Negative (Negative) 04/15/21 11:50 Calcium 8.6 mg/dL (8.4-10.2) 04/17/21 05:52 Magnesium 2.30 mg/dL (1.7-2.3) 04/16/21 15:02 Total Bilirubin 0.30 mg/dL (0.1-1.2) 04/17/21 05:52 Direct Bilirubin < 0.2 mg/dL (0-0.2) 04/15/21 11:50 Indirect Bilirubin 0.0 mg/dL 04/15/21 11:50 AST 13 units/L (5-40) 04/17/21 05:52 ALT 13 units/L (7-56) 04/17/21 05:52 Alkaline Phosphatase 103 units/L (35-129) 04/17/21 05:52 Total Creatine Kinase 46 units/L (30-135) 04/15/21 11:50 CK-MB (CK-2) 1.3 ng/mL (0.0-4.0) 04/15/21 11:50 CK-MB (CK-2) Rel Index 2.8 (0-4) 04/15/21 11:50 Troponin T < 0.010 ng/mL (0.00-0.029) 04/15/21 11:50 Total Protein 6.2 g/dL (6.3-8.2) L 04/17/21 05:52 Albumin 2.9 g/dL (3.9-5) L 04/17/21 05:52 Albumin/Globulin Ratio 0.9 % 04/17/21 05:52 Triglycerides 113 mg/dL (2-149) 04/16/21 15:02 Cholesterol 110 mg/dL (50-199) 04/16/21 15:02 LDL Cholesterol Direct 47 mg/dL (50-130) L 04/16/21 15:02 HDL Cholesterol 48 mg/dL (40-59) 04/16/21 15:02 Cholesterol/HDL Ratio 2.29 % 04/16/21 15:02 Urine Color Colorless (Yellow) 04/15/21 13:03 Urine Turbidity Clear (Clear) 04/15/21 13:03 Urine pH 7.0 (5.0-7.0) 04/15/21 13:03 Ur Specific [place] 1.036 (1.003-1.030) H 04/15/21 13:03 Urine Protein 100 mg/dl mg/dL (Negative) 04/15/21 13:03 Urine Glucose (UA) >=500 mg/dL (Negative) 04/15/21 13:03 Urine Ketones Neg mg/dL (Negative) 04/15/21 13:03 Urine Blood Sm (Negative) 04/15/21 13:03 Urine Nitrite Neg (Negative) 04/15/21 13:03 Urine Bilirubin Neg (Negative) 04/15/21 13:03 Urine Urobilinogen < 2.0 mg/dL (<2.0) 04/15/21 13:03 Ur Leukocyte Esterase Neg (Negative) 04/15/21 13:03 Urine WBC (Auto) 1.0 /HPF (0.0-6.0) 04/15/21 13:03 Urine RBC (Auto) < 1.0 /HPF (0.0-6.0) 04/15/21 13:03 U Epithel Cells (Auto) 1.0 /HPF (0-13.0) 04/15/21 13:03 K[place]t/IV: Voiding Method External Female Catheter Active Medications - Current Medications Current Medications: Generic Name Dose Route Start Last Admin Trade Name Freq PRN Reason Stop Dose Admin Acetaminophen 650 mg 04/15/21 23:05 04/16/21 01:00 Acetaminophen 650 Mg Rect Supp [place] 650 mg Q6H PRN Administration Pain, Mild (1-3) Acetaminophen 650 mg 04/15/21 23:58 Acetaminophen 325 Mg Tab PO Q4H PRN Pain MILD(1-3)/Fever >100.5/[place] Aspirin 325 mg 04/16/21 14:00 04/17/21 10:21 Aspirin Ec 325 Mg Tab PO 325 mg QDAY MAGO Administration Atorvastatin Calcium 40 mg 04/16/21 22:00 04/16/21 23:02 Atorvastatin 40 Mg Tab PO 40 mg QHS MAGO Administration Famotidine 20 mg 04/16/21 00:00 04/17/21 10:22 Famotidine 20 Mg/2 Ml Inj IV 20 mg BID MAGO Administration Heparin Sodium (Porcine) 5,000 unit 04/16/21 10:00 04/17/21 10:21 Heparin 5,000 Unit/1 Ml Vial SUB-Q 5,000 unit Q12HR MAGO Administration Hydralazine HCl 50 mg 04/15/21 23:45 04/17/21 05:24 Hydralazine 25 Mg Tab PO 50 mg Q8HR MAGO Administration Hydromorphone HCl 0.5 mg 04/15/21 23:58 Hydromorphone 1 Mg/1 Ml Inj IV Q3H PRN Pain , Severe (7-10) Sodium Chloride 1,000 mls @ 125 mls/hr 11/02/21 23:45 04/16/21 14:19 Nacl 0.45% 1000 Ml IV 125 mls/hr DIRECT MAGO Administration Insulin Human Isoph/Insulin Regular 15 unit 04/16/21 09:30 04/17/21 10:21 Insulin Nph/Regular 70/30 Inj SUB-Q 15 unit BIDDIAB MAGO Administration Insulin Human Regular 0 units 04/16/21 22:00 04/17/21 10:20 Insulin Regular, Human 100 Units/1 Ml SUB-Q Not Given ACHS [facility] Protocol Levetiracetam 750 mg 04/16/21 14:00 04/17/21 10:21 Levetiracetam 500 Mg/5 Ml Oral Liqd PO 750 mg BID MAGO Administration Montelukast Sodium 10 mg 04/16/21 22:00 04/16/21 23:02 Montelukast 10 Mg Tab PO 10 mg QHS MAGO Administration Morphine Sulfate 2 mg 04/15/21 23:58 Morphine 2 Mg/1 Ml Inj IV Q4H PRN Pain, Moderate (4-6) Ondansetron HCl 4 mg 04/16/21 00:40 Ondansetron 4 Mg/2 Ml Inj IV Q8H PRN Nausea And Vomiting Sodium Chloride 10 ml 04/16/21 10:00 04/17/21 10:22 Sodium Chloride 0.9% 10 Ml Flush Syringe IV 10 ml BID MAGO Administration Sodium Chloride 10 ml 04/15/21 23:58 Sodium Chloride 0.9% 10 Ml Flush Syringe IV PRN PRN LINE FLUSH
[2021-04-17] MEDS ORDERED: MONTELUKAST 10 MG TAB PO SCH (18:00)
[2021-04-17] MEDS: SODIUM CHLORIDE 0.45% 1000 ML 1,000 ML IV SCH (22:52)
[2021-04-17] MEDS: cloNIDine 0.1 MG TAB PO SCH (22:54)
[2021-04-17] MEDS: MONTELUKAST 10 MG TAB PO SCH (22:55)
[2021-04-18] MEDS ORDERED: hydrALAZINE 20 MG/1 ML INJ IV PRN (00:18)
[2021-04-18] MEDS: hydrALAZINE 25 MG TAB PO SCH ×3 (06:23→21:23)
[2021-04-18] MEDS: INSULIN REGULAR, HUMAN 100 UNITS/1 ML SUB-Q SCH ×4 (10:53→21:24)
[2021-04-18] MEDS: INSULIN NPH/REGULAR 70/30 INJ SUB-Q SCH ×2 (10:53→17:21)
[2021-04-18] MEDS: levETIRAcetam 500 MG/5 ML ORAL LIQD PO SCH ×2 (10:54→21:22)
[2021-04-18] MEDS: ASPIRIN EC 325 MG TAB PO SCH (10:54)
[2021-04-18] MEDS: cloNIDine 0.1 MG TAB PO SCH ×2 (10:54→21:22)
[2021-04-18] MEDS: HEPARIN 5,000 UNIT/1 ML VIAL SUB-Q SCH ×3 (10:54→21:32)
--- NOTE | 2021-04-18 10:54 | Progress Note ---
Assessment and Plan Assessment and Plan Advance Directives: Yes (Full code) VTE prophylaxis?: Chemical Plan of care discussed with patient/family: Yes - Patient Problems # Acute encephalopathy at home / TIA can not be excluded/ and or seizure -Niece noted drooling and Urinary incontinence and she is confused with the possibility of seizure can not be excluded -Poor compliance with medications -she lives alone -CT brain is unremarkable -CTA showed right vertebral stenosis -MRI brain showed no acute event . 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 not to be home alone 4- Seizure precaution 5- Not to stay alone at home , no driving d/w pt. 6- comply with medications 7- MRI showed no acute event ,EEG is pending 8- ASA 325 mg daily and lipitor 40 mg 9- comply with Keppra 750 mg bid 10 -Suger today is #[id number] will sign off Subjective Date of service: 04/18/21 Principal diagnosis: confusion and hyperglycemia with possible witnessed seizure Interval history: more alert interactive today no seizure slurred speech improved as well as eye drooping no clear facial asymmetry is noted MRI is with no acute findings EEG still with left side slowing with benavides looking activity left T3 pt. does not drive since her car is broken -- she is instructed not to drive and take her medications as Rx and not to be alone at home !!! all D/W her nice yesterday Objective - Vital Sign Vital Signs - 12hr 04/17/21 04/18/21 04/18/21 23:56 00:20 01:37 Temperature 98.4 F Pulse Rate 75 75 Respiratory 18 Rate Blood Pressure 183/88 Blood Pressure [Right] O2 Sat by Pulse 95 97 Oximetry 04/18/21 04/18/21 04/18/21 02:01 02:02 04:01 Temperature Pulse Rate Respiratory Rate Blood Pressure 156/65 Blood Pressure [Right] O2 Sat by Pulse 96 98 Oximetry 04/18/21 04/18/21 04:59 08:55 Temperature 98.4 F 122.0 F H Pulse Rate 78 92 H Respiratory 18 Rate Blood Pressure 174/79 Blood Pressure 151/68 [Right] O2 Sat by Pulse 98 Oximetry - General Apperance Constitutional: comfortable - EENT EENT: PERRL, mucous membranes moist - Respiratory Respiratory: chest non-tender, lungs clear, rhonchi - Cardiovascular Cardiovascular: regular rate, normal S1, normal S2 Extremities: no peripheral edema bilat, no clubbing, cyanosis - Gastrointestinal Gastrointestinal: normoactive bowel sounds - Integumentary Integumentary: normal - Neurologic Cranial nerve examination: PERRL, EOMI, intact Speech examination: intact Detailed motor examination: grossly full strength in - Laboratory Findings CBC and BMP: 04/17/21 05:52 04/17/21 05:52 Abnormal Lab Findings: Abnormal Labs 04/15/21 04/15/21 04/15/21 11:24 11:50 11:50 RBC 5.43 H Hct 45.2 H MCH 26 L RDW 15.5 H Lymph % (Auto) 6.8 L Lymph # (Auto) 0.6 L Seg Neutrophils % 89.8 H Seg Neutrophils # 8.2 H Thrombin Time 20.1 H Sodium Potassium Glucose POC Glucose 548 H Hemoglobin A1c Alkaline Phosphatase Total Protein Albumin LDL Cholesterol Direct Ur Specific [place] 04/15/21 04/15/21 04/15/21 11:50 11:50 13:03 RBC Hct MCH RDW Lymph % (Auto) Lymph # (Auto) Seg Neutrophils % Seg Neutrophils # Thrombin Time Sodium 136 L Potassium Glucose 549 H* POC Glucose Hemoglobin A1c Alkaline Phosphatase 186 H Total Protein Albumin 3.5 L LDL Cholesterol Direct Ur Specific [place] 1.036 H 04/15/21 04/15/21 04/16/21 15:32 20:59 06:10 RBC Hct MCH RDW Lymph % (Auto) Lymph # (Auto) Seg Neutrophils % Seg Neutrophils # Thrombin Time Sodium Potassium Glucose POC Glucose 279 H 284 H 374 H Hemoglobin A1c Alkaline Phosphatase Total Protein Albumin LDL Cholesterol Direct Ur Specific [place] 04/16/21 04/16/21 04/16/21 08:09 11:37 15:02 RBC Hct MCH RDW Lymph % (Auto) Lymph # (Auto) Seg Neutrophils % Seg Neutrophils # Thrombin Time Sodium Potassium 3.3 L D Glucose 293 H POC Glucose 322 H 275 H Hemoglobin A1c Alkaline Phosphatase Total Protein Albumin LDL Cholesterol Direct 47 L Ur Specific [place] 04/16/21 04/17/21 04/17/21 15:32 05:52 05:52 RBC Hct MCH 26 L RDW 15.6 H Lymph % (Auto) Lymph # (Auto) Seg Neutrophils % Seg Neutrophils # Thrombin Time Sodium Potassium Glucose 207 H POC Glucose 271 H Hemoglobin A1c Alkaline Phosphatase Total Protein 6.2 L Albumin 2.9 L LDL Cholesterol Direct Ur Specific [place] 04/17/21 04/17/21 04/18/21 05:52 21:48 08:09 RBC Hct MCH RDW Lymph % (Auto) Lymph # (Auto) Seg Neutrophils % Seg Neutrophils # Thrombin Time Sodium Potassium Glucose POC Glucose 194 H 127 H Hemoglobin A1c 12.4 H Alkaline Phosphatase Total Protein Albumin LDL Cholesterol Direct Ur Specific [place]
[2021-04-18] MEDS: CLOPIDOGREL 75 MG TAB PO SCH (10:55)
[2021-04-18] MEDS: FAMOTIDINE 20 MG/2 ML INJ IV SCH ×3 (10:55→21:33)
--- NOTE | 2021-04-18 12:42 | Vascular Lab Report ---
DUPLEX DOPPLER ULTRASOUND CAROTID, BILATERAL INDICATION / CLINICAL INFORMATION: Encephalopathy/possible CVA. COMPARISON: CTA of the neck from 04/15/2021. FINDINGS: RIGHT CAROTID: - PLAQUE ESTIMATE (%): < 50% - CCA velocity: 88 cm/sec. - ICA peak systolic velocity: 66 cm/sec. - ICA/CCA PSV Ratio: Less than 2 Right Vertebral Artery: Nonvisualization right vertebral artery, may be occluded or hypoplastic. LEFT CAROTID: - [place] ESTIMATE: < 50% - CCA velocity: 98 cm/sec. - ICA peak systolic velocity: 91 cm/sec. - ICA/CCA PSV Ratio: Less than 2 Left Vertebral Artery: Antegrade flow. IMPRESSION: 1. Right Internal Carotid Artery: Less than 50% diameter stenosis. 2. Left Internal Carotid Artery: Less than 50% diameter stenosis. 3. Nonvisualization of the right vertebral artery, may be occluded or hypoplastic. Velocity criteria are extrapolated from diameter data as defined by the Society of Radiologists in Ul trasound Consensus Conference, Radiology 2003; 229;340-346. NO STENOSIS (NORMAL) * Plaque = none; ICA PSV < 125 cm/sec; ICA/CCA PSV Ratio < 2.0 <50% STENOSIS * Plaque < 50%; ICA PSV < 125 cm/sec; ICA/CCA PSV Ratio < 2.0 50-69% STENOSIS * Plaque > 50%; ICA PSV = 125-230 cm/sec; ICA/CCA PSV Ratio = 2.0-4.0 >70% BUT <100% STENOSIS * Plaque > 50%; ICA PSV > 230 cm/sec; ICA/CCA PSV Ratio > 4.0 NEAR OCCLUSION * Plaque = visible lumen; ICA PSV = high/low/none; ICA/CCA PSV Ratio = variable TOTAL OCCLUSION * Plaque = no lumen; ICA PSV = none; ICA/CCA PSV Ratio = N/A Signer Name: Gera Nugent MD Signed: 04/18/2021 12:38 PM Workstation Name: [id number]
--- NOTE | 2021-04-18 13:59 | Progress Note ---
Assessment and Plan Assessment and plan: -- Acute metabolic encephalopathy Current Visit: Yes Status: Acute Probably secondary to uncontrolled blood sugars CT head no acute abnormality CTA head negative MRI brain; no significant abnormality noted limited study due to motion artifact. EEG; pending Neurochecks and supportive care Neurology following PT OT ST evaluation and recommendations Follow PT OT evaluation recommendation Possible subacute/SNF placement versus home with home health --Uncontrolled diabetes mellitus /A1c 12.4 Current Visit: Yes Status: Chronic Frequent Accu-Cheks High-dose sliding scale coverage Initiated on insulin 70/30 15 units twice a day Diabetic education nutrition education --Hypertension moderate control Current Visit: Yes Status: Chronic Continue current antihypertensives, as needed hydralazine --Severe protein calorie malnutrition/hypoalbuminemia Current Visit: Yes Status: Chronic Nutrition supplements, supportive care Nutrition consult - DVT prophylaxis Current Visit: Yes Status: Acute On heparin and GI prophylaxis DC planning per case management; pending PT OT evaluation recommendations We will closely monitor the patient and adjust the management as needed Plan of care reviewed with the patient and her nurse as well as case management team I will try to reach out to the family and update patient's condition Follow neuro evaluation and recommendation Plan of care reviewed with the patient and her nurse 04/16/2021; patient CT head without contrast CTA head negative for acute abnormalities MRI brain done today waiting report, neurology evaluation noted and appreciated 04/17/2021; patient will get PT OT evaluation and recommendations MRI brain no acute abnormality, possible placement versus home with home health when stable 04/18/2021; SNF placement, case management processing Closely monitor History Interval history: I have have seen and examined the patient at the bedside Patient's chart medications reviewed Patient needs 04/01 supervision Family is unable to provide recommend SNF placement Patient has no new complaints Hospitalist Physical - Constitutional Vitals: Temp Pulse Resp BP Pulse Ox 122.0 F H 86 18 174/79 97 04/18/21 08:55 04/18/21 11:28 04/18/21 08:55 04/18/21 08:55 04/18/21 10:52 General appearance: Present: no acute distress, well-nourished, other (Slightly confused) - EENT Eyes: Present: PERRL, EOM intact - Neck Neck: Present: supple, normal ROM - Respiratory Respiratory effort: normal Respiratory: bilateral: diminished, negative: rales, rhonchi, wheezing - Cardiovascular Rhythm: regular Heart Sounds: Present: S1 & S2 - Extremities Extremities: no ischemia, No edema Peripheral Pulses: within normal limits - Abdominal General gastrointestinal: soft, non-tender, non-distended, normal bowel sounds - Integumentary Integumentary: Present: clear, warm - Psychiatric Psychiatric: appropriate mood/affect, cooperative - Neurologic Neurologic: moves all extremities HEART Score - HEART Score Troponin: Troponin T < 0.010 ng/mL (0.00-0.029) 04/15/21 11:50 Results - Labs CBC & Chem 7: 04/17/21 05:52 04/17/21 05:52 Labs: Laboratory Last Values WBC 8.1 K/mm3 (4.5-11.0) 04/17/21 05:52 RBC 4.58 M/mm3 (3.65-5.03) 04/17/21 05:52 Hgb 12.1 gm/dl (10.1-14.3) 04/17/21 05:52 Hct 37.0 % (30.3-42.9) D 04/17/21 05:52 MCV 81 fl (79-97) 04/17/21 05:52 MCH 26 pg (28-32) L 04/17/21 05:52 MCHC 33 % (30-34) 04/17/21 05:52 RDW 15.6 % (13.2-15.2) H 04/17/21 05:52 Plt Count 189 K/mm3 (140-440) 04/17/21 05:52 Lymph % (Auto) 29.5 % (13.4-35.0) 04/17/21 05:52 [place] % (Auto) 5.1 % (0.0-7.3) 04/17/21 05:52 Eos % (Auto) 1.5 % (0.0-4.3) 04/17/21 05:52 Baso % (Auto) 0.7 % (0.0-1.8) 04/17/21 05:52 Lymph # (Auto) 2.4 K/mm3 (1.2-5.4) 04/17/21 05:52 [place] # (Auto) 0.4 K/mm3 (0.0-0.8) 04/17/21 05:52 Eos # (Auto) 0.1 K/mm3 (0.0-0.4) 04/17/21 05:52 Baso # (Auto) 0.1 K/mm3 (0.0-0.1) 04/17/21 05:52 Seg Neutrophils % 63.2 % (40.0-70.0) 04/17/21 05:52 Seg Neutrophils # 5.1 K/mm3 (1.8-7.7) 04/17/21 05:52 PT 13.0 Sec. (12.2-14.9) 04/15/21 11:50 INR 0.88 (0.87-1.13) 04/15/21 11:50 APTT 27.5 Sec. (24.2-36.6) 04/15/21 11:50 Thrombin Time 20.1 Sec. (15.1-19.6) H 04/15/21 11:50 VBG pH 7.412 (7.320-7.420) 04/15/21 11:50 Sodium 141 mmol/L (137-145) 04/17/21 05:52 Potassium 3.6 mmol/L (3.6-5.0) 04/17/21 05:52 Chloride 106.5 mmol/L (98-107) 04/17/21 05:52 Carbon Dioxide 23 mmol/L (22-30) 04/17/21 05:52 Anion Gap 15 mmol/L 04/17/21 05:52 BUN 15 mg/dL (7-17) 04/17/21 05:52 Creatinine 1.0 mg/dL (0.6-1.2) 04/17/21 05:52 Estimated GFR > 60 ml/min 04/17/21 05:52 BUN/Creatinine Ratio 15 % 04/17/21 05:52 Glucose 207 mg/dL (65-100) H 04/17/21 05:52 POC Glucose 127 mg/dL (70-105) H 04/18/21 08:09 Hemoglobin A1c 12.4 % (4-6) H 04/17/21 05:52 Ketones Quantitative Negative (Negative) 04/15/21 11:50 Calcium 8.6 mg/dL (8.4-10.2) 04/17/21 05:52 Magnesium 2.30 mg/dL (1.7-2.3) 04/16/21 15:02 Total Bilirubin 0.30 mg/dL (0.1-1.2) 04/17/21 05:52 Direct Bilirubin < 0.2 mg/dL (0-0.2) 04/15/21 11:50 Indirect Bilirubin 0.0 mg/dL 04/15/21 11:50 AST 13 units/L (5-40) 04/17/21 05:52 ALT 13 units/L (7-56) 04/17/21 05:52 Alkaline Phosphatase 103 units/L (35-129) 04/17/21 05:52 Total Creatine Kinase 46 units/L (30-135) 04/15/21 11:50 CK-MB (CK-2) 1.3 ng/mL (0.0-4.0) 04/15/21 11:50 CK-MB (CK-2) Rel Index 2.8 (0-4) 04/15/21 11:50 Troponin T < 0.010 ng/mL (0.00-0.029) 04/15/21 11:50 Total Protein 6.2 g/dL (6.3-8.2) L 04/17/21 05:52 Albumin 2.9 g/dL (3.9-5) L 04/17/21 05:52 Albumin/Globulin Ratio 0.9 % 04/17/21 05:52 Triglycerides 113 mg/dL (2-149) 04/16/21 15:02 Cholesterol 110 mg/dL (50-199) 04/16/21 15:02 LDL Cholesterol Direct 47 mg/dL (50-130) L 04/16/21 15:02 HDL Cholesterol 48 mg/dL (40-59) 04/16/21 15:02 Cholesterol/HDL Ratio 2.29 % 04/16/21 15:02 Urine Color Colorless (Yellow) 04/15/21 13:03 Urine Turbidity Clear (Clear) 04/15/21 13:03 Urine pH 7.0 (5.0-7.0) 04/15/21 13:03 Ur Specific [place] 1.036 (1.003-1.030) H 04/15/21 13:03 Urine Protein 100 mg/dl mg/dL (Negative) 04/15/21 13:03 Urine Glucose (UA) >=500 mg/dL (Negative) 04/15/21 13:03 Urine Ketones Neg mg/dL (Negative) 04/15/21 13:03 Urine Blood Sm (Negative) 04/15/21 13:03 Urine Nitrite Neg (Negative) 04/15/21 13:03 Urine Bilirubin Neg (Negative) 04/15/21 13:03 Urine Urobilinogen < 2.0 mg/dL (<2.0) 04/15/21 13:03 Ur Leukocyte Esterase Neg (Negative) 04/15/21 13:03 Urine WBC (Auto) 1.0 /HPF (0.0-6.0) 04/15/21 13:03 Urine RBC (Auto) < 1.0 /HPF (0.0-6.0) 04/15/21 13:03 U Epithel Cells (Auto) 1.0 /HPF (0-13.0) 04/15/21 13:03 Knott/IV: Voiding Method External Female Catheter Active Medications - Current Medications Current Medications: Generic Name Dose Route Start Last Admin Trade Name Freq PRN Reason Stop Dose Admin Acetaminophen 650 mg 04/15/21 23:05 04/16/21 01:00 Acetaminophen 650 Mg Rect Supp [place] 650 mg Q6H PRN Administration Pain, Mild (1-3) Acetaminophen 650 mg 04/15/21 23:58 Acetaminophen 325 Mg Tab PO Q4H PRN Pain MILD(1-3)/Fever >100.5/[place] Aspirin 325 mg 04/16/21 14:00 04/18/21 10:54 Aspirin Ec 325 Mg Tab PO Not Given QDAY MAGO Atorvastatin Calcium 40 mg 04/16/21 22:00 04/17/21 22:54 Atorvastatin 40 Mg Tab PO 40 mg QHS MAGO Administration Clonidine HCl 0.1 mg 04/17/21 22:00 04/18/21 10:54 Clonidine 0.1 Mg Tab PO 0.1 mg BID MAGO Administration Clopidogrel Bisulfate 75 mg 04/18/21 10:00 04/18/21 10:55 Clopidogrel 75 Mg Tab PO 75 mg QDAY MAGO Administration Famotidine 20 mg 04/16/21 00:00 04/18/21 10:55 Famotidine 20 Mg/2 Ml Inj IV 20 mg BID MAGO Administration Heparin Sodium (Porcine) 5,000 unit 04/16/21 10:00 04/18/21 10:54 Heparin 5,000 Unit/1 Ml Vial SUB-Q 5,000 unit Q12HR MAGO Administration Hydralazine HCl 50 mg 04/15/21 23:45 04/18/21 06:23 Hydralazine 25 Mg Tab PO 50 mg Q8HR MAGO Administration Hydralazine HCl 10 mg 04/18/21 00:18 Hydralazine 20 Mg/1 Ml Inj IV Q6HR PRN Hypertension Hydromorphone HCl 0.5 mg 04/15/21 23:58 Hydromorphone 1 Mg/1 Ml Inj IV Q3H PRN Pain , Severe (7-10) Sodium Chloride 1,000 mls @ 125 mls/hr 04/15/21 23:45 04/17/21 22:52 Nacl 0.45% 1000 Ml IV 125 mls/hr DIRECT MAGO Administration Insulin Human Isoph/Insulin Regular 15 unit 04/16/21 09:30 04/18/21 10:53 Insulin Nph/Regular 70/30 Inj SUB-Q Not Given BIDDIAB [facility] Insulin Human Regular 0 units 04/16/21 22:00 04/18/21 10:53 Insulin Regular, Human 100 Units/1 Ml SUB-Q Not Given ACHS [facility] Protocol Levetiracetam 750 mg 04/16/21 14:00 04/18/21 10:54 Levetiracetam 500 Mg/5 Ml Oral Liqd PO 750 mg BID MAGO Administration Montelukast Sodium 10 mg 04/16/21 22:00 04/17/21 22:55 Montelukast 10 Mg Tab PO 10 mg QHS MAGO Administration Morphine Sulfate 2 mg 04/15/21 23:58 Morphine 2 Mg/1 Ml Inj IV Q4H PRN Pain, Moderate (4-6) Ondansetron HCl 4 mg 04/16/21 00:40 Ondansetron 4 Mg/2 Ml Inj IV Q8H PRN Nausea And Vomiting Sodium Chloride 10 ml 04/16/21 10:00 04/18/21 10:55 Sodium Chloride 0.9% 10 Ml Flush Syringe IV 10 ml BID MAGO Administration Sodium Chloride 10 ml 04/15/21 23:58 Sodium Chloride 0.9% 10 Ml Flush Syringe IV PRN PRN LINE FLUSH
[2021-04-18] MEDS: MONTELUKAST 10 MG TAB PO SCH (21:22)
[2021-04-19] MEDS: hydrALAZINE 25 MG TAB PO SCH ×3 (05:21→22:55)
[2021-04-19] MEDS: INSULIN REGULAR, HUMAN 100 UNITS/1 ML SUB-Q SCH ×4 (08:58→22:58)
[2021-04-19] MEDS: INSULIN NPH/REGULAR 70/30 INJ SUB-Q SCH ×2 (08:59→17:33)
[2021-04-19] MEDS: HEPARIN 5,000 UNIT/1 ML VIAL SUB-Q SCH ×3 (10:00→22:56)
[2021-04-19] MEDS: cloNIDine 0.1 MG TAB PO SCH ×2 (14:29→22:54)
[2021-04-19] MEDS: ASPIRIN EC 325 MG TAB PO SCH (14:30)
[2021-04-19] MEDS: FAMOTIDINE 20 MG/2 ML INJ IV SCH ×2 (14:31→22:56)
[2021-04-19] MEDS: CLOPIDOGREL 75 MG TAB PO SCH (14:31)
[2021-04-19] MEDS: levETIRAcetam 500 MG/5 ML ORAL LIQD PO SCH ×2 (14:31→22:55)
--- NOTE | 2021-04-19 19:22 | Progress Note ---
Assessment and Plan Assessment and plan: -- Acute metabolic encephalopathy Current Visit: Yes Status: Acute Neuro work-up is negative However PT OT, neurology recommend 04/01 supervision Family advised SNF placement However patient adamantly refusing rehab or SNF placement Patient requests to be released to go and live with her childhood friend who will take care of Work-up so far: CT head no acute abnormality CTA head negative MRI brain; no significant abnormality noted limited study due to motion artifact. EEG; pending Neurochecks and supportive care Neurology following PT OT ST evaluation and recommendations Follow PT OT evaluation recommendation Possible subacute/SNF placement versus home with home health --Uncontrolled diabetes mellitus /A1c 12.4 Current Visit: Yes Status: Chronic Frequent Accu-Cheks High-dose sliding scale coverage Initiated on insulin 70/30 15 units twice a day Diabetic education nutrition education --Hypertension moderate control Current Visit: Yes Status: Chronic Continue current antihypertensives, as needed hydralazine --Severe protein calorie malnutrition/hypoalbuminemia Current Visit: Yes Status: Chronic Nutrition supplements, supportive care Nutrition consult - DVT prophylaxis Current Visit: Yes Status: Acute On heparin and GI prophylaxis DC planning per case management; pending PT OT evaluation recommendations We will closely monitor the patient and adjust the management as needed Plan of care reviewed with the patient and her nurse as well as case management team I will try to reach out to the family and update patient's condition Follow neuro evaluation and recommendation Plan of care reviewed with the patient and her nurse 04/16/2021; patient CT head without contrast CTA head negative for acute abnormalities MRI brain done today waiting report, neurology evaluation noted and appreciated 04/17/2021; patient will get PT OT evaluation and recommendations MRI brain no acute abnormality, possible placement versus home with home health when stable 04/18/2021; SNF placement, case management processing Closely monitor 04/19/21; pending placement SNF versus subacute rehab However patient adamantly refusing she wants to go home to her friend Patient's daughter from out of town wants the placement DC planning per case management History Interval history: Seen and examined the patient at the bedside Patient's chart and medications reviewed Patient feels better, No new complaints Wants to go home ,does not want SNF placement Hospitalist Physical - Constitutional Vitals: Temp Pulse Resp BP Pulse Ox 98.0 F 84 18 166/86 96 04/19/21 11:24 04/19/21 12:00 04/19/21 11:24 04/19/21 11:24 04/19/21 11:24 General appearance: Present: no acute distress, well-nourished, other (Slightly confused) - EENT Eyes: Present: PERRL, EOM intact - Neck Neck: Present: supple, normal ROM - Respiratory Respiratory effort: normal Respiratory: bilateral: diminished, negative: rales, rhonchi, wheezing - Cardiovascular Rhythm: regular Heart Sounds: Present: S1 & S2 - Extremities Extremities: no ischemia, No edema - Abdominal General gastrointestinal: soft, non-tender, non-distended, normal bowel sounds - Integumentary Integumentary: Present: clear, warm - Psychiatric Psychiatric: appropriate mood/affect, cooperative - Neurologic Neurologic: CNII-XII intact, moves all extremities HEART Score - HEART Score Troponin: Troponin T < 0.010 ng/mL (0.00-0.029) 04/15/21 11:50 Results - Labs CBC & Chem 7: 04/17/21 05:52 04/17/21 05:52 Labs: Laboratory Last Values WBC 8.1 K/mm3 (4.5-11.0) 04/17/21 05:52 RBC 4.58 M/mm3 (3.65-5.03) 04/17/21 05:52 Hgb 12.1 gm/dl (10.1-14.3) 04/17/21 05:52 Hct 37.0 % (30.3-42.9) D 04/17/21 05:52 MCV 81 fl (79-97) 04/17/21 05:52 MCH 26 pg (28-32) L 04/17/21 05:52 MCHC 33 % (30-34) 04/17/21 05:52 RDW 15.6 % (13.2-15.2) H 04/17/21 05:52 Plt Count 189 K/mm3 (140-440) 04/17/21 05:52 Lymph % (Auto) 29.5 % (13.4-35.0) 04/17/21 05:52 [place] % (Auto) 5.1 % (0.0-7.3) 04/17/21 05:52 Eos % (Auto) 1.5 % (0.0-4.3) 04/17/21 05:52 Baso % (Auto) 0.7 % (0.0-1.8) 04/17/21 05:52 Lymph # (Auto) 2.4 K/mm3 (1.2-5.4) 04/17/21 05:52 [place] # (Auto) 0.4 K/mm3 (0.0-0.8) 04/17/21 05:52 Eos # (Auto) 0.1 K/mm3 (0.0-0.4) 04/17/21 05:52 Baso # (Auto) 0.1 K/mm3 (0.0-0.1) 04/17/21 05:52 Seg Neutrophils % 63.2 % (40.0-70.0) 04/17/21 05:52 Seg Neutrophils # 5.1 K/mm3 (1.8-7.7) 04/17/21 05:52 PT 13.0 Sec. (12.2-14.9) 04/15/21 11:50 INR 0.88 (0.87-1.13) 04/15/21 11:50 APTT 27.5 Sec. (24.2-36.6) 04/15/21 11:50 Thrombin Time 20.1 Sec. (15.1-19.6) H 04/15/21 11:50 VBG pH 7.412 (7.320-7.420) 04/15/21 11:50 Sodium 141 mmol/L (137-145) 04/17/21 05:52 Potassium 3.6 mmol/L (3.6-5.0) 04/17/21 05:52 Chloride 106.5 mmol/L (98-107) 04/17/21 05:52 Carbon Dioxide 23 mmol/L (22-30) 04/17/21 05:52 Anion Gap 15 mmol/L 04/17/21 05:52 BUN 15 mg/dL (7-17) 04/17/21 05:52 Creatinine 1.0 mg/dL (0.6-1.2) 04/17/21 05:52 Estimated GFR > 60 ml/min 04/17/21 05:52 BUN/Creatinine Ratio 15 % 04/17/21 05:52 Glucose 207 mg/dL (65-100) H 04/17/21 05:52 POC Glucose 193 mg/dL (70-105) H 04/19/21 16:19 Hemoglobin A1c 12.4 % (4-6) H 04/17/21 05:52 Ketones Quantitative Negative (Negative) 04/15/21 11:50 Calcium 8.6 mg/dL (8.4-10.2) 04/17/21 05:52 Magnesium 2.30 mg/dL (1.7-2.3) 04/16/21 15:02 Total Bilirubin 0.30 mg/dL (0.1-1.2) 04/17/21 05:52 Direct Bilirubin < 0.2 mg/dL (0-0.2) 04/15/21 11:50 Indirect Bilirubin 0.0 mg/dL 04/15/21 11:50 AST 13 units/L (5-40) 04/17/21 05:52 ALT 13 units/L (7-56) 04/17/21 05:52 Alkaline Phosphatase 103 units/L (35-129) 04/17/21 05:52 Total Creatine Kinase 46 units/L (30-135) 04/15/21 11:50 CK-MB (CK-2) 1.3 ng/mL (0.0-4.0) 04/15/21 11:50 CK-MB (CK-2) Rel Index 2.8 (0-4) 04/15/21 11:50 Troponin T < 0.010 ng/mL (0.00-0.029) 04/15/21 11:50 Total Protein 6.2 g/dL (6.3-8.2) L 04/17/21 05:52 Albumin 2.9 g/dL (3.9-5) L 04/17/21 05:52 Albumin/Globulin Ratio 0.9 % 04/17/21 05:52 Triglycerides 113 mg/dL (2-149) 04/16/21 15:02 Cholesterol 110 mg/dL (50-199) 04/16/21 15:02 LDL Cholesterol Direct 47 mg/dL (50-130) L 04/16/21 15:02 HDL Cholesterol 48 mg/dL (40-59) 04/16/21 15:02 Cholesterol/HDL Ratio 2.29 % 04/16/21 15:02 Urine Color Colorless (Yellow) 04/15/21 13:03 Urine Turbidity Clear (Clear) 04/15/21 13:03 Urine pH 7.0 (5.0-7.0) 04/15/21 13:03 Ur Specific [place] 1.036 (1.003-1.030) H 04/15/21 13:03 Urine Protein 100 mg/dl mg/dL (Negative) 04/15/21 13:03 Urine Glucose (UA) >=500 mg/dL (Negative) 04/15/21 13:03 Urine Ketones Neg mg/dL (Negative) 04/15/21 13:03 Urine Blood Sm (Negative) 04/15/21 13:03 Urine Nitrite Neg (Negative) 04/15/21 13:03 Urine Bilirubin Neg (Negative) 04/15/21 13:03 Urine Urobilinogen < 2.0 mg/dL (<2.0) 04/15/21 13:03 Ur Leukocyte Esterase Neg (Negative) 04/15/21 13:03 Urine WBC (Auto) 1.0 /HPF (0.0-6.0) 04/15/21 13:03 Urine RBC (Auto) < 1.0 /HPF (0.0-6.0) 04/15/21 13:03 U Epithel Cells (Auto) 1.0 /HPF (0-13.0) 04/15/21 13:03 Knot[place]/IV: Voiding Method Toilet Active Medications - Current Medications Current Medications: Generic Name Dose Route Start Last Admin Trade Name Freq PRN Reason Stop Dose Admin Acetaminophen 650 mg 04/15/21 23:05 04/16/21 01:00 Acetaminophen 650 Mg Rect Supp [place] 650 mg Q6H PRN Administration Pain, Mild (1-3) Acetaminophen 650 mg 04/15/21 23:58 Acetaminophen 325 Mg Tab PO Q4H PRN Pain MILD(1-3)/Fever >100.5/[place] Aspirin 325 mg 04/16/21 14:00 04/19/21 14:30 Aspirin Ec 325 Mg Tab PO 325 mg QDAY MAGO Administration Atorvastatin Calcium 40 mg 04/16/21 22:00 04/18/21 21:25 Atorvastatin 40 Mg Tab PO 40 mg QHS MAGO Administration Clonidine HCl 0.1 mg 04/17/21 22:00 04/19/21 14:29 Clonidine 0.1 Mg Tab PO 0.1 mg BID MAGO Administration Clopidogrel Bisulfate 75 mg 04/18/21 10:00 04/19/21 14:31 Clopidogrel 75 Mg Tab PO 75 mg QDAY MAGO Administration Famotidine 20 mg 04/16/21 00:00 04/19/21 14:31 Famotidine 20 Mg/2 Ml Inj IV 20 mg BID MAGO Administration Heparin Sodium (Porcine) 5,000 unit 04/16/21 10:00 04/19/21 10:00 Heparin 5,000 Unit/1 Ml Vial SUB-Q Not Given Q12HR MAGO Hydralazine HCl 50 mg 04/15/21 23:45 04/19/21 14:32 Hydralazine 25 Mg Tab PO 50 mg Q8HR MAGO Administration Hydralazine HCl 10 mg 04/18/21 00:18 Hydralazine 20 Mg/1 Ml Inj IV Q6HR PRN Hypertension Hydromorphone HCl 0.5 mg 04/15/21 23:58 Hydromorphone 1 Mg/1 Ml Inj IV Q3H PRN Pain , Severe (7-10) Sodium Chloride 1,000 mls @ 125 mls/hr 04/15/21 23:45 04/17/21 22:52 Nacl 0.45% 1000 Ml IV 125 mls/hr DIRECT MAGO Administration Insulin Human Isoph/Insulin Regular 15 unit 04/16/21 09:30 04/19/21 17:33 Insulin Nph/Regular 70/30 Inj SUB-Q 15 unit BIDDIAB MAGO Administration Insulin Human Regular 0 units 04/16/21 22:00 04/19/21 17:32 Insulin Regular, Human 100 Units/1 Ml SUB-Q Not Given ACHS [facility] Protocol Levetiracetam 750 mg 04/16/21 14:00 04/19/21 14:31 Levetiracetam 500 Mg/5 Ml Oral Liqd PO 750 mg BID MAGO Administration Montelukast Sodium 10 mg 04/16/21 22:00 04/18/21 21:22 Montelukast 10 Mg Tab PO 10 mg QHS MAGO Administration Morphine Sulfate 2 mg 04/15/21 23:58 Morphine 2 Mg/1 Ml Inj IV Q4H PRN Pain, Moderate (4-6) Ondansetron HCl 4 mg 04/16/21 00:40 Ondansetron 4 Mg/2 Ml Inj IV Q8H PRN Nausea And Vomiting Sodium Chloride 10 ml 04/16/21 10:00 04/18/21 21:24 Sodium Chloride 0.9% 10 Ml Flush Syringe IV 10 ml BID MAGO Administration Sodium Chloride 10 ml 04/15/21 23:58 Sodium Chloride 0.9% 10 Ml Flush Syringe IV PRN PRN LINE FLUSH
[2021-04-19] MEDS: MONTELUKAST 10 MG TAB PO SCH (22:56)
[2021-04-20] MEDS: hydrALAZINE 25 MG TAB PO SCH ×3 (06:29→21:51)
[2021-04-20] MEDS: INSULIN REGULAR, HUMAN 100 UNITS/1 ML SUB-Q SCH ×4 (08:29→21:52)
[2021-04-20] MEDS: INSULIN NPH/REGULAR 70/30 INJ SUB-Q SCH ×2 (08:32→16:44)
[2021-04-20] MEDS: CLOPIDOGREL 75 MG TAB PO SCH (10:31)
[2021-04-20] MEDS: levETIRAcetam 500 MG/5 ML ORAL LIQD PO SCH ×2 (10:31→21:51)
[2021-04-20] MEDS: cloNIDine 0.1 MG TAB PO SCH ×2 (10:31→21:51)
[2021-04-20] MEDS: ASPIRIN EC 325 MG TAB PO SCH (10:31)
[2021-04-20] MEDS: HEPARIN 5,000 UNIT/1 ML VIAL SUB-Q SCH ×2 (10:32→21:52)
[2021-04-20] MEDS: FAMOTIDINE 20 MG/2 ML INJ IV SCH ×2 (10:41→21:52)
--- NOTE | 2021-04-20 11:23 | Progress Note ---
Assessment and Plan Assessment and plan: -- Acute metabolic encephalopathy Current Visit: Yes Status: Acute Neuro work-up is negative However PT OT, neurology recommend 04/01 supervision Family advised SNF placement However patient adamantly refusing rehab or SNF placement Patient requests to be released to go and live with her childhood friend who will take care of Work-up so far: CT head no acute abnormality CTA head negative MRI brain; no significant abnormality noted limited study due to motion artifact. EEG; pending Neurochecks and supportive care Neurology following PT OT ST evaluation and recommendations Follow PT OT evaluation recommendation Possible subacute/SNF patient refuses placement She wants to go and live with her friend --Uncontrolled diabetes mellitus /A1c 12.4 Current Visit: Yes Status: Chronic Frequent Accu-Cheks High-dose sliding scale coverage Initiated on insulin 70/30 15 units twice a day Diabetic education nutrition education --Hypertension moderate control Current Visit: Yes Status: Chronic Continue current antihypertensives, as needed hydralazine --Severe protein calorie malnutrition/hypoalbuminemia Current Visit: Yes Status: Chronic Nutrition supplements, supportive care Nutrition consult - DVT prophylaxis Current Visit: Yes Status: Acute On heparin and GI prophylaxis DC planning per case management; pending PT OT evaluation recommendations However patient continues to refuse placement, NOK the daughter wants placement We will closely monitor the patient and adjust the management as needed Plan of care reviewed with the patient and her nurse as well as case management team I will try to reach out to the family and update patient's condition Follow neuro evaluation and recommendation Plan of care reviewed with the patient and her nurse 04/16/2021; patient CT head without contrast CTA head negative for acute abnormalities MRI brain done today waiting report, neurology evaluation noted and appreciated 04/17/2021; patient will get PT OT evaluation and recommendations MRI brain no acute abnormality, possible placement versus home with home health when stable 04/18/2021; SNF placement, case management processing Closely monitor 04/19/21; pending placement SNF versus subacute rehab However patient adamantly refusing she wants to go home to her friend Patient's daughter from out of town wants the placement DC planning per case management 04/20/2021; patient is clinically stable, awaiting placement However patient is refusing wants to go and stay with her friend DC planning per case management. Patient is medically stable History Interval history: I seen and examined the patient at the bedside Patient's chart and medications reviewed No new complaints Alert awake oriented x3 Hospitalist Physical - Constitutional Vitals: Temp Pulse Resp BP Pulse Ox 98.3 F 78 18 155/87 96 04/20/21 07:32 04/20/21 10:31 04/20/21 07:32 04/20/21 10:31 04/20/21 07:32 General appearance: Present: no acute distress, well-nourished, other (Slightly confused) - EENT Eyes: Present: PERRL, EOM intact - Neck Neck: Present: supple, normal ROM - Respiratory Respiratory effort: normal Respiratory: bilateral: diminished, negative: rales, rhonchi, wheezing - Cardiovascular Rhythm: regular Heart Sounds: Present: S1 & S2 - Extremities Extremities: no ischemia, No edema - Abdominal General gastrointestinal: soft, non-tender, non-distended, normal bowel sounds - Integumentary Integumentary: Present: clear, warm - Psychiatric Psychiatric: appropriate mood/affect, cooperative - Neurologic Neurologic: moves all extremities HEART Score - HEART Score Troponin: Troponin T < 0.010 ng/mL (0.00-0.029) 04/15/21 11:50 Results - Labs CBC & Chem 7: 04/17/21 05:52 04/17/21 05:52 Labs: Laboratory Last Values WBC 8.1 K/mm3 (4.5-11.0) 04/17/21 05:52 RBC 4.58 M/mm3 (3.65-5.03) 04/17/21 05:52 Hgb 12.1 gm/dl (10.1-14.3) 04/17/21 05:52 Hct 37.0 % (30.3-42.9) D 04/17/21 05:52 MCV 81 fl (79-97) 04/17/21 05:52 MCH 26 pg (28-32) L 04/17/21 05:52 MCHC 33 % (30-34) 04/17/21 05:52 RDW 15.6 % (13.2-15.2) H 04/17/21 05:52 Plt Count 189 K/mm3 (140-440) 04/17/21 05:52 Lymph % (Auto) 29.5 % (13.4-35.0) 04/17/21 05:52 [place] % (Auto) 5.1 % (0.0-7.3) 04/17/21 05:52 Eos % (Auto) 1.5 % (0.0-4.3) 04/17/21 05:52 Baso % (Auto) 0.7 % (0.0-1.8) 04/17/21 05:52 Lymph # (Auto) 2.4 K/mm3 (1.2-5.4) 04/17/21 05:52 [place] # (Auto) 0.4 K/mm3 (0.0-0.8) 04/17/21 05:52 Eos # (Auto) 0.1 K/mm3 (0.0-0.4) 04/17/21 05:52 Baso # (Auto) 0.1 K/mm3 (0.0-0.1) 04/17/21 05:52 Seg Neutrophils % 63.2 % (40.0-70.0) 04/17/21 05:52 Seg Neutrophils # 5.1 K/mm3 (1.8-7.7) 04/17/21 05:52 PT 13.0 Sec. (12.2-14.9) 04/15/21 11:50 INR 0.88 (0.87-1.13) 04/15/21 11:50 APTT 27.5 Sec. (24.2-36.6) 04/15/21 11:50 Thrombin Time 20.1 Sec. (15.1-19.6) H 04/15/21 11:50 VBG pH 7.412 (7.320-7.420) 04/15/21 11:50 Sodium 141 mmol/L (137-145) 04/17/21 05:52 Potassium 3.6 mmol/L (3.6-5.0) 04/17/21 05:52 Chloride 106.5 mmol/L (98-107) 04/17/21 05:52 Carbon Dioxide 23 mmol/L (22-30) 04/17/21 05:52 Anion Gap 15 mmol/L 04/17/21 05:52 BUN 15 mg/dL (7-17) 04/17/21 05:52 Creatinine 1.0 mg/dL (0.6-1.2) 04/17/21 05:52 Estimated GFR > 60 ml/min 04/17/21 05:52 BUN/Creatinine Ratio 15 % 04/17/21 05:52 Glucose 207 mg/dL (65-100) H 04/17/21 05:52 POC Glucose 103 mg/dL (70-105) 04/20/21 07:31 Hemoglobin A1c 12.4 % (4-6) H 04/17/21 05:52 Ketones Quantitative Negative (Negative) 04/15/21 11:50 Calcium 8.6 mg/dL (8.4-10.2) 04/17/21 05:52 Magnesium 2.30 mg/dL (1.7-2.3) 04/16/21 15:02 Total Bilirubin 0.30 mg/dL (0.1-1.2) 04/17/21 05:52 Direct Bilirubin < 0.2 mg/dL (0-0.2) 04/15/21 11:50 Indirect Bilirubin 0.0 mg/dL 04/15/21 11:50 AST 13 units/L (5-40) 04/17/21 05:52 ALT 13 units/L (7-56) 04/17/21 05:52 Alkaline Phosphatase 103 units/L (35-129) 04/17/21 05:52 Total Creatine Kinase 46 units/L (30-135) 04/15/21 11:50 CK-MB (CK-2) 1.3 ng/mL (0.0-4.0) 04/15/21 11:50 CK-MB (CK-2) Rel Index 2.8 (0-4) 04/15/21 11:50 Troponin T < 0.010 ng/mL (0.00-0.029) 04/15/21 11:50 Total Protein 6.2 g/dL (6.3-8.2) L 04/17/21 05:52 Albumin 2.9 g/dL (3.9-5) L 04/17/21 05:52 Albumin/Globulin Ratio 0.9 % 04/17/21 05:52 Triglycerides 113 mg/dL (2-149) 04/16/21 15:02 Cholesterol 110 mg/dL (50-199) 04/16/21 15:02 LDL Cholesterol Direct 47 mg/dL (50-130) L 04/16/21 15:02 HDL Cholesterol 48 mg/dL (40-59) 04/16/21 15:02 Cholesterol/HDL Ratio 2.29 % 04/16/21 15:02 Urine Color Colorless (Yellow) 04/15/21 13:03 Urine Turbidity Clear (Clear) 04/15/21 13:03 Urine pH 7.0 (5.0-7.0) 04/15/21 13:03 Ur Specific [place] 1.036 (1.003-1.030) H 04/15/21 13:03 Urine Protein 100 mg/dl mg/dL (Negative) 04/15/21 13:03 Urine Glucose (UA) >=500 mg/dL (Negative) 04/15/21 13:03 Urine Ketones Neg mg/dL (Negative) 04/15/21 13:03 Urine Blood Sm (Negative) 04/15/21 13:03 Urine Nitrite Neg (Negative) 04/15/21 13:03 Urine Bilirubin Neg (Negative) 04/15/21 13:03 Urine Urobilinogen < 2.0 mg/dL (<2.0) 04/15/21 13:03 Ur Leukocyte Esterase Neg (Negative) 04/15/21 13:03 Urine WBC (Auto) 1.0 /HPF (0.0-6.0) 04/15/21 13:03 Urine RBC (Auto) < 1.0 /HPF (0.0-6.0) 04/15/21 13:03 U Epithel Cells (Auto) 1.0 /HPF (0-13.0) 04/15/21 13:03 Knott/IV: Voiding Method Toilet Active Medications - Current Medications Current Medications: Generic Name Dose Route Start Last Admin Trade Name Freq PRN Reason Stop Dose Admin Acetaminophen 650 mg 04/15/21 23:05 04/16/21 01:00 Acetaminophen 650 Mg Rect Supp [place] 650 mg Q6H PRN Administration Pain, Mild (1-3) Acetaminophen 650 mg 04/15/21 23:58 Acetaminophen 325 Mg Tab PO Q4H PRN Pain MILD(1-3)/Fever >100.5/[place] Aspirin 325 mg 04/16/21 14:00 04/20/21 10:31 Aspirin Ec 325 Mg Tab PO 325 mg QDAY MAGO Administration Atorvastatin Calcium 40 mg 04/16/21 22:00 04/19/21 22:55 Atorvastatin 40 Mg Tab PO 40 mg QHS MAGO Administration Clonidine HCl 0.1 mg 04/17/21 22:00 04/20/21 10:31 Clonidine 0.1 Mg Tab PO 0.1 mg BID MAGO Administration Clopidogrel Bisulfate 75 mg 04/18/21 10:00 04/20/21 10:31 Clopidogrel 75 Mg Tab PO 75 mg QDAY MAGO Administration Famotidine 20 mg 04/16/21 00:00 04/20/21 10:41 Famotidine 20 Mg/2 Ml Inj IV 20 mg BID MAGO Administration Heparin Sodium (Porcine) 5,000 unit 04/16/21 10:00 04/20/21 10:32 Heparin 5,000 Unit/1 Ml Vial SUB-Q Not Given Q12HR MAGO Hydralazine HCl 50 mg 04/15/21 23:45 04/20/21 06:29 Hydralazine 25 Mg Tab PO 50 mg Q8HR MAGO Administration Hydralazine HCl 10 mg 04/18/21 00:18 Hydralazine 20 Mg/1 Ml Inj IV Q6HR PRN Hypertension Hydromorphone HCl 0.5 mg 04/15/21 23:58 Hydromorphone 1 Mg/1 Ml Inj IV Q3H PRN Pain , Severe (7-10) Sodium Chloride 1,000 mls @ 125 mls/hr 04/15/21 23:45 04/17/21 22:52 Nacl 0.45% 1000 Ml IV 125 mls/hr DIRECT MAGO Administration Insulin Human Isoph/Insulin Regular 15 unit 04/16/21 09:30 04/20/21 08:32 Insulin Nph/Regular 70/30 Inj SUB-Q 15 unit BIDDIAB MAGO Administration Insulin Human Regular 0 units 04/16/21 22:00 04/20/21 08:29 Insulin Regular, Human 100 Units/1 Ml SUB-Q Not Given ACHS [facility] Protocol Levetiracetam 750 mg 04/16/21 14:00 04/20/21 10:31 Levetiracetam 500 Mg/5 Ml Oral Liqd PO 750 mg BID MAGO Administration Montelukast Sodium 10 mg 04/16/21 22:00 04/19/21 22:56 Montelukast 10 Mg Tab PO 10 mg QHS MAGO Administration Morphine Sulfate 2 mg 04/15/21 23:58 Morphine 2 Mg/1 Ml Inj IV Q4H PRN Pain, Moderate (4-6) Ondansetron HCl 4 mg 11/03/21 00:40 Ondansetron 4 Mg/2 Ml Inj IV Q8H PRN Nausea And Vomiting Sodium Chloride 10 ml 04/16/21 10:00 04/20/21 10:32 Sodium Chloride 0.9% 10 Ml Flush Syringe IV 10 ml BID MAGO Administration Sodium Chloride 10 ml 04/15/21 23:58 Sodium Chloride 0.9% 10 Ml Flush Syringe IV PRN PRN LINE FLUSH
[2021-04-20] MEDS: ACETAMINOPHEN 325 MG TAB PO PRN (12:22)
--- NOTE | 2021-04-20 19:53 | Event Note ---
Date: 04/20/21 I called patient's daughter AGUSTIN Warner at [phone] ,and discussed with her in detail the patient's condition, tests and reports, consultants recommendation, treatment and discharge planning, informed her that patient is not comfortable and is refusing to be placed in subacute rehab /SNF, instead wants to go to her friend's place, and that she has a lot of bills to pay and her medicines and mail to collect. And asked her opinion about the thought process of her mother, the patient. Ms. Timmy Villalobos stated that she talked to her mother many times, and the best option for her mother is at this point is to place in subacute rehab or SNF, she also informed me that she is planning to visit her mother here in [place] sometime next week. She has ultimate plans of taking her to her place in [place] when she makes the arrangements.I answered all her questions and encouraged her to call back if she has new concerns
[2021-04-20] MEDS: MONTELUKAST 10 MG TAB PO SCH (21:51)
[2021-04-21] MEDS ORDERED: diphenhydrAMINE 25 MG/10 ML ORAL LIQUID PO ONE (01:08)
[2021-04-21] MEDS: hydrALAZINE 25 MG TAB PO SCH ×3 (06:20→21:54)
[2021-04-21] MEDS: INSULIN REGULAR, HUMAN 100 UNITS/1 ML SUB-Q SCH ×4 (08:47→21:55)
[2021-04-21] MEDS: ASPIRIN EC 325 MG TAB PO SCH (09:05)
[2021-04-21] MEDS: HEPARIN 5,000 UNIT/1 ML VIAL SUB-Q SCH ×2 (09:06→22:00)
[2021-04-21] MEDS: cloNIDine 0.1 MG TAB PO SCH ×2 (09:06→21:53)
[2021-04-21] MEDS: CLOPIDOGREL 75 MG TAB PO SCH (09:06)
[2021-04-21] MEDS: levETIRAcetam 500 MG/5 ML ORAL LIQD PO SCH ×3 (09:06→21:54)
[2021-04-21] MEDS: FAMOTIDINE 20 MG/2 ML INJ IV SCH (09:12)
[2021-04-21] MEDS: INSULIN NPH/REGULAR 70/30 INJ SUB-Q SCH ×2 (09:12→17:11)
--- NOTE | 2021-04-21 19:50 | Progress Note ---
Assessment and Plan Assessment and plan: -- Acute metabolic encephalopathy Current Visit: Yes Status: Acute Neuro work-up is negative However PT OT, neurology recommend 24/7 supervision Family advised SNF placement However patient adamantly refusing rehab or SNF placement Patient requests to be released to go and live with her childhood friend who will take care of Work-up so far: CT head no acute abnormality CTA head negative MRI brain; no significant abnormality noted limited study due to motion artifact. EEG; pending Neurochecks and supportive care Neurology following PT OT ST evaluation and recommendations Follow PT OT evaluation recommendation Possible subacute/SNF patient refuses placement She wants to go and live with her friend --Uncontrolled diabetes mellitus /A1c 12.4 Current Visit: Yes Status: Chronic Frequent Accu-Cheks High-dose sliding scale coverage Initiated on insulin 70/30 15 units twice a day Diabetic education nutrition education --Hypertension moderate control Current Visit: Yes Status: Chronic Continue current antihypertensives, as needed hydralazine --Severe protein calorie malnutrition/hypoalbuminemia; Current Visit: Yes Status: Chronic Nutrition supplements, supportive care Nutrition consult - DVT prophylaxis Current Visit: Yes Status: Acute On heparin and GI prophylaxis DC planning per case management; pending PT OT evaluation recommendations However patient continues to refuse placement, NOK the daughter wants placement We will closely monitor the patient and adjust the management as needed Plan of care reviewed with the patient and her nurse as well as case management team I will try to reach out to the family and update patient's condition Follow neuro evaluation and recommendation Plan of care reviewed with the patient and her nurse Brief history and hospital course: 60-year-old female patient was admitted through emergency room with altered level of consciousness with bladder bowel incontinence and incoherent speech admitted to the hospital to rule out acute CVA/TIA/metabolic encephalopathy Patient was not a candidate for TPA Had extensive neuro work-up as mentioned above evaluated by neurologist PT OT and speech therapist patient symptoms significantly improved neuro work-up is basically within normal limits however due to patient's intermittent confusion it was recommended that patient should have 24/7 supervision, family members contacted they are out of town and they expressed their inability to supervise 24/7 and requested SNF placement, however patient adamantly refuses and does not want to go to any facility wants to go back to her friend's place, all the caregivers including case management have discussed in detail with the next of kin daughter from [place] who adamantly and strongly recommends SNF placement and ultimately she wants to take her mother to be with her in [place]. Case management processing SNF/subacute rehab placement. Patient is medically stable for discharge 04/16/2021; patient CT head without contrast CTA head negative for acute abnormalities MRI brain done today waiting report, neurology evaluation noted and appreciated 04/17/2021; patient will get PT OT evaluation and recommendations MRI brain no acute abnormality, possible placement versus home with home health when stable 04/18/2021; SNF placement, case management processing Closely monitor 04/19/21; pending placement SNF versus subacute rehab However patient adamantly refusing she wants to go home to her friend Patient's daughter from out of [facility] wants the placement DC planning per case management 04/20/2021; patient is clinically stable, awaiting placement However patient is refusing wants to go and stay with her friend DC planning per case management. Patient is medically stable 04/21/2021; patient medically stable for discharge Awaiting SNF placement I spoke with patient's daughter from [place] in detail yesterday, to confirm the final plans of SNF placement Disposition; patient is medically stable for discharge, pending SNF placement History Interval history: I have seen and examined the patient at the bedside patient's chart and medications reviewed patient is anxious to go home continues to refuse SNF placement. However daughter wants the patient to be in [facility] facility and that she would make a trip to visit her sometime next week. No new complaints, patient is not in acute distress vital signs reviewed No new events reported by the nursing staff Hospitalist Physical - Constitutional Vitals: Temp Pulse Resp BP Pulse Ox 98.7 F 89 17 149/79 98 04/21/21 16:46 04/21/21 17:09 04/21/21 17:09 04/21/21 17:09 04/21/21 17:09 General appearance: Present: no acute distress, well-nourished, other (Slightly confused) - EENT Eyes: Present: PERRL, EOM intact - Neck Neck: Present: supple, normal ROM - Respiratory Respiratory effort: normal Respiratory: bilateral: diminished, negative: rales, rhonchi, wheezing - Cardiovascular Rhythm: regular Heart Sounds: Present: S1 & S2 - Extremities Extremities: no ischemia, No edema - Abdominal General gastrointestinal: soft, non-tender, non-distended, normal bowel sounds - Integumentary Integumentary: Present: clear, warm - Psychiatric Psychiatric: appropriate mood/affect, cooperative - Neurologic Neurologic: CNII-XII intact, moves all extremities HEART Score - HEART Score Troponin: Troponin T < 0.010 ng/mL (0.00-0.029) 04/15/21 11:50 Results - Labs CBC & Chem 7: 04/17/21 05:52 04/17/21 05:52 Labs: Laboratory Last Values WBC 8.1 K/mm3 (4.5-11.0) 04/17/21 05:52 RBC 4.58 M/mm3 (3.65-5.03) 04/17/21 05:52 Hgb 12.1 gm/dl (10.1-14.3) 04/17/21 05:52 Hct 37.0 % (30.3-42.9) D 04/17/21 05:52 MCV 81 fl (79-97) 04/17/21 05:52 MCH 26 pg (28-32) L 04/17/21 05:52 MCHC 33 % (30-34) 04/17/21 05:52 RDW 15.6 % (13.2-15.2) H 04/17/21 05:52 Plt Count 189 K/mm3 (140-440) 04/17/21 05:52 Lymph % (Auto) 29.5 % (13.4-35.0) 04/17/21 05:52 [place] % (Auto) 5.1 % (0.0-7.3) 04/17/21 05:52 Eos % (Auto) 1.5 % (0.0-4.3) 04/17/21 05:52 Baso % (Auto) 0.7 % (0.0-1.8) 04/17/21 05:52 Lymph # (Auto) 2.4 K/mm3 (1.2-5.4) 04/17/21 05:52 [place] # (Auto) 0.4 K/mm3 (0.0-0.8) 04/17/21 05:52 Eos # (Auto) 0.1 K/mm3 (0.0-0.4) 04/17/21 05:52 Baso # (Auto) 0.1 K/mm3 (0.0-0.1) 04/17/21 05:52 Seg Neutrophils % 63.2 % (40.0-70.0) 04/17/21 05:52 Seg Neutrophils # 5.1 K/mm3 (1.8-7.7) 04/17/21 05:52 PT 13.0 Sec. (12.2-14.9) 04/15/21 11:50 INR 0.88 (0.87-1.13) 04/15/21 11:50 APTT 27.5 Sec. (24.2-36.6) 04/15/21 11:50 Thrombin Time 20.1 Sec. (15.1-19.6) H 04/15/21 11:50 VBG pH 7.412 (7.320-7.420) 04/15/21 11:50 Sodium 141 mmol/L (137-145) 04/17/21 05:52 Potassium 3.6 mmol/L (3.6-5.0) 04/17/21 05:52 Chloride 106.5 mmol/L (98-107) 04/17/21 05:52 Carbon Dioxide 23 mmol/L (22-30) 04/17/21 05:52 Anion Gap 15 mmol/L 04/17/21 05:52 BUN 15 mg/dL (7-17) 04/17/21 05:52 Creatinine 1.0 mg/dL (0.6-1.2) 04/17/21 05:52 Estimated GFR > 60 ml/min 04/17/21 05:52 BUN/Creatinine Ratio 15 % 04/17/21 05:52 Glucose 207 mg/dL (65-100) H 04/17/21 05:52 POC Glucose 270 mg/dL (70-105) H 04/21/21 16:47 Hemoglobin A1c 12.4 % (4-6) H 04/17/21 05:52 Ketones Quantitative Negative (Negative) 04/15/21 11:50 Calcium 8.6 mg/dL (8.4-10.2) 04/17/21 05:52 Magnesium 2.30 mg/dL (1.7-2.3) 04/16/21 15:02 Total Bilirubin 0.30 mg/dL (0.1-1.2) 04/17/21 05:52 Direct Bilirubin < 0.2 mg/dL (0-0.2) 04/15/21 11:50 Indirect Bilirubin 0.0 mg/dL 04/15/21 11:50 AST 13 units/L (5-40) 04/17/21 05:52 ALT 13 units/L (7-56) 04/17/21 05:52 Alkaline Phosphatase 103 units/L (35-129) 04/17/21 05:52 Total Creatine Kinase 46 units/L (30-135) 04/15/21 11:50 CK-MB (CK-2) 1.3 ng/mL (0.0-4.0) 04/15/21 11:50 CK-MB (CK-2) Rel Index 2.8 (0-4) 04/15/21 11:50 Troponin T < 0.010 ng/mL (0.00-0.029) 04/15/21 11:50 Total Protein 6.2 g/dL (6.3-8.2) L 04/17/21 05:52 Albumin 2.9 g/dL (3.9-5) L 04/17/21 05:52 Albumin/Globulin Ratio 0.9 % 04/17/21 05:52 Triglycerides 113 mg/dL (2-149) 04/16/21 15:02 Cholesterol 110 mg/dL (50-199) 04/16/21 15:02 LDL Cholesterol Direct 47 mg/dL (50-130) L 04/16/21 15:02 HDL Cholesterol 48 mg/dL (40-59) 04/16/21 15:02 Cholesterol/HDL Ratio 2.29 % 04/16/21 15:02 Urine Color Colorless (Yellow) 04/15/21 13:03 Urine Turbidity Clear (Clear) 04/15/21 13:03 Urine pH 7.0 (5.0-7.0) 04/15/21 13:03 Ur Specific [place] 1.036 (1.003-1.030) H 04/15/21 13:03 Urine Protein 100 mg/dl mg/dL (Negative) 04/15/21 13:03 Urine Glucose (UA) >=500 mg/dL (Negative) 04/15/21 13:03 Urine Ketones Neg mg/dL (Negative) 04/15/21 13:03 Urine Blood Sm (Negative) 04/15/21 13:03 Urine Nitrite Neg (Negative) 04/15/21 13:03 Urine Bilirubin Neg (Negative) 04/15/21 13:03 Urine Urobilinogen < 2.0 mg/dL (<2.0) 04/15/21 13:03 Ur Leukocyte Esterase Neg (Negative) 04/15/21 13:03 Urine WBC (Auto) 1.0 /HPF (0.0-6.0) 04/15/21 13:03 Urine RBC (Auto) < 1.0 /HPF (0.0-6.0) 04/15/21 13:03 U Epithel Cells (Auto) 1.0 /HPF (0-13.0) 04/15/21 13:03 Knott/IV: Voiding Method Toilet Active Medications - Current Medications Current Medications: Generic Name Dose Route Start Last Admin Trade Name Freq PRN Reason Stop Dose Admin Acetaminophen 650 mg 04/15/21 23:05 04/16/21 01:00 Acetaminophen 650 Mg Rect Supp [place] 650 mg Q6H PRN Administration Pain, Mild (1-3) Acetaminophen 650 mg 04/15/21 23:58 04/20/21 12:22 Acetaminophen 325 Mg Tab PO 650 mg Q4H PRN Administration Pain MILD(1-3)/Fever >100.5/[place] Aspirin 325 mg 04/16/21 14:00 04/21/21 09:05 Aspirin Ec 325 Mg Tab PO 325 mg QDAY MAGO Administration Atorvastatin Calcium 40 mg 04/16/21 22:00 04/20/21 21:51 Atorvastatin 40 Mg Tab PO 40 mg QHS MAGO Administration Clonidine HCl 0.1 mg 04/17/21 22:00 04/21/21 09:06 Clonidine 0.1 Mg Tab PO 0.1 mg BID MAGO Administration Clopidogrel Bisulfate 75 mg 04/18/21 10:00 04/21/21 09:06 Clopidogrel 75 Mg Tab PO 75 mg QDAY MAGO Administration Famotidine 20 mg 04/21/21 22:00 Famotidine 20 Mg Tab PO BID MAGO Heparin Sodium (Porcine) 5,000 unit 04/16/21 10:00 04/21/21 09:06 Heparin 5,000 Unit/1 Ml Vial SUB-Q 5,000 unit Q12HR MAGO Administration Hydralazine HCl 50 mg 04/15/21 23:45 04/21/21 14:50 Hydralazine 25 Mg Tab PO 50 mg Q8HR MAGO Administration Hydralazine HCl 10 mg 04/18/21 00:18 Hydralazine 20 Mg/1 Ml Inj IV Q6HR PRN Hypertension Hydromorphone HCl 0.5 mg 04/15/21 23:58 Hydromorphone 1 Mg/1 Ml Inj IV Q3H PRN Pain , Severe (7-10) Sodium Chloride 1,000 mls @ 125 mls/hr 04/15/21 23:45 04/17/21 22:52 Nacl 0.45% 1000 Ml IV 125 mls/hr DIRECT MAGO Administration Insulin Human Isoph/Insulin Regular 15 unit 04/16/21 09:30 04/21/21 17:11 Insulin Nph/Regular 70/30 Inj SUB-Q 15 unit BIDDIAB MAGO Administration Insulin Human Regular 0 units 04/16/21 22:00 04/21/21 17:11 Insulin Regular, Human 100 Units/1 Ml SUB-Q 3 units ACHS MAGO Administration Protocol Levetiracetam 750 mg 04/16/21 14:00 04/21/21 09:18 Levetiracetam 500 Mg/5 Ml Oral Liqd PO Not Given BID MAGO Montelukast Sodium 10 mg 04/16/21 22:00 04/20/21 21:51 Montelukast 10 Mg Tab PO 10 mg QHS MAGO Administration Morphine Sulfate 2 mg 04/15/21 23:58 Morphine 2 Mg/1 Ml Inj IV Q4H PRN Pain, Moderate (4-6) Ondansetron HCl 4 mg 04/16/21 00:40 Ondansetron 4 Mg/2 Ml Inj IV Q8H PRN Nausea And Vomiting Sodium Chloride 10 ml 04/16/21 10:00 04/21/21 09:06 Sodium Chloride 0.9% 10 Ml Flush Syringe IV 10 ml BID MAGO Administration Sodium Chloride 10 ml 04/15/21 23:58 Sodium Chloride 0.9% 10 Ml Flush Syringe IV PRN PRN LINE FLUSH
[2021-04-21] MEDS: FAMOTIDINE 20 MG TAB PO SCH (21:53)
[2021-04-21] MEDS: MONTELUKAST 10 MG TAB PO SCH (21:54)
[2021-04-22] MEDS: hydrALAZINE 25 MG TAB PO SCH ×3 (06:49→22:09)
[2021-04-22] MEDS: INSULIN REGULAR, HUMAN 100 UNITS/1 ML SUB-Q SCH ×4 (08:51→22:17)
[2021-04-22] MEDS: INSULIN NPH/REGULAR 70/30 INJ SUB-Q SCH ×2 (08:51→16:05)
[2021-04-22] MEDS: ASPIRIN EC 325 MG TAB PO SCH (09:19)
[2021-04-22] MEDS: HEPARIN 5,000 UNIT/1 ML VIAL SUB-Q SCH ×2 (09:19→22:17)
[2021-04-22] MEDS: CLOPIDOGREL 75 MG TAB PO SCH (09:19)
[2021-04-22] MEDS: cloNIDine 0.1 MG TAB PO SCH ×2 (09:19→22:09)
[2021-04-22] MEDS: FAMOTIDINE 20 MG TAB PO SCH ×2 (09:19→22:09)
[2021-04-22] MEDS: levETIRAcetam 500 MG/5 ML ORAL LIQD PO SCH ×2 (09:19→22:08)
[2021-04-22] MEDS: ACETAMINOPHEN 325 MG TAB PO PRN (12:04)
--- NOTE | 2021-04-22 17:00 | Progress Note ---
Assessment and Plan -- Acute metabolic encephalopathy Current Visit: Yes Status: Acute Neuro work-up is negative However PT OT, neurology recommend 24/7 supervision Family advised SNF placement However patient adamantly refusing rehab or SNF placement Patient requests to be released to go and live with her childhood friend who will take care of Work-up so far: CT head no acute abnormality CTA head negative MRI brain; no significant abnormality noted limited study due to motion artifac t. EEG; pending Neurochecks and supportive care Neurology following PT OT ST evaluation and recommendations Follow PT OT evaluation recommendation Possible subacute/SNF patient refuses placement She wants to go and live with her friend --Uncontrolled diabetes mellitus /A1c 12.4 Current Visit: Yes Status: Chronic Frequent Accu-Cheks High-dose sliding scale coverage Initiated on insulin 70/30 15 units twice a day Diabetic education nutrition education --Hypertension moderate control Current Visit: Yes Status: Chronic Continue current antihypertensives, as needed hydralazine --Severe protein calorie malnutrition/hypoalbuminemia; Current Visit: Yes Status: Chronic Nutrition supplements, supportive care Nutrition consult - DVT prophylaxis Current Visit: Yes Status: Acute On heparin and GI prophylaxis DC planning per case management; pending PT OT evaluation recommendations However patient continues to refuse placement, NOK the daughter wants placement We will closely monitor the patient and adjust the management as needed Plan of care reviewed with the patient and her nurse as well as case management team I will try to reach out to the family and update patient's condition Follow neuro evaluation and recommendation Plan of care reviewed with the patient and her nurse Brief history and hospital course: 60-year-old female patient was admitted through emergency room with altered level of consciousness with bladder bowel incontinence and incoherent speech admitted to the hospital to rule out acute CVA/TIA/metabolic encephalopathy Patient was not a candidate for TPA Had extensive neuro work-up as mentioned above evaluated by neurologist PT OT and speech therapist patient symptoms significantly improved neuro work-up is basically within normal limits however due to patient's intermittent confusion it was recommended that patient should have 24/7 supervision, family members contacted they are out of town and they expressed their inability to supervise 24/7 and requested SNF placement, however patient adamantly refuses and does not want to go to any facility wants to go back to her friend's place, all the caregivers including case management have discussed in detail with the next of kin daughter from [place] who adamantly and strongly recommends SNF placement and ultimately she wants to take her mother to be with her in [place]. Case management processing SNF/subacute rehab placement. Patient is medically stable for discharge 04/16/2021; patient CT head without contrast CTA head negative for acute abnormalities MRI brain done today waiting report, neurology evaluation noted and appreciated 04/17/2021; patient will get PT OT evaluation and recommendations MRI brain no acute abnormality, possible placement versus home with home health when stable 04/18/2021; SNF placement, case management processing Closely monitor 04/19/21; pending placement SNF versus subacute rehab However patient adamantly refusing she wants to go home to her friend Patient's daughter from out of [facility] wants the placement DC planning per case management 04/20/2021; patient is clinically stable, awaiting placement However patient is refusing wants to go and stay with her friend DC planning per case management. Patient is medically stable 04/21/2021; patient medically stable for discharge Awaiting SNF placement I spoke with patient's daughter from [place] in detail yesterday, to confirm the final plans of SNF placement Disposition; patient is medically stable for discharge, pending SNF placement Subjective Date of service: 04/22/21 Principal diagnosis: confusion and hyperglycemia with possible witnessed seizure Objective - Constitutional Vitals: Vital Signs - 12hr 04/22/21 04/22/21 04/22/21 06:49 07:46 11:50 Temperature 98.2 F 98.2 F Pulse Rate 88 96 H 87 Respiratory 18 18 Rate Blood Pressure 125/69 133/61 169/84 O2 Sat by Pulse 96 97 Oximetry 04/22/21 04/22/21 04/22/21 12:04 13:04 15:42 Temperature 98.0 F Pulse Rate Respiratory 17 15 18 Rate Blood Pressure 156/86 O2 Sat by Pulse Oximetry - Labs CBC & Chem 7: 04/17/21 05:52 04/17/21 05:52 Labs: Abnormal lab results 04/21/21 04/22/21 04/22/21 Range/Units 21:17 07:42 11:48 POC Glucose 197 H 162 H 288 H (70-105) mg/dL 04/22/21 Range/Units 15:40 POC Glucose 177 H (70-105) mg/dL HEART Score - HEART Score Troponin: Troponin T < 0.010 ng/mL (0.00-0.029) 04/15/21 11:50
[2021-04-22] MEDS: MONTELUKAST 10 MG TAB PO SCH (22:09)
[2021-04-23] MEDS: hydrALAZINE 25 MG TAB PO SCH (06:33)
[2021-04-23 08:30] VITALS: BP 153/73
[2021-04-23] MEDS: ASPIRIN EC 325 MG TAB PO SCH (09:30)
[2021-04-23] MEDS: CLOPIDOGREL 75 MG TAB PO SCH (09:30)
[2021-04-23] MEDS: INSULIN NPH/REGULAR 70/30 INJ SUB-Q SCH (09:31)
[2021-04-23] MEDS: cloNIDine 0.1 MG TAB PO SCH (09:31)
[2021-04-23] MEDS: HEPARIN 5,000 UNIT/1 ML VIAL SUB-Q SCH (09:32)
[2021-04-23] MEDS: FAMOTIDINE 20 MG TAB PO SCH (09:32)
[2021-04-23] MEDS: INSULIN REGULAR, HUMAN 100 UNITS/1 ML SUB-Q SCH ×2 (09:32→12:44)
[2021-04-23] MEDS: levETIRAcetam 500 MG/5 ML ORAL LIQD PO SCH (09:41)
--- NOTE | 2021-04-23 12:55 | Discharge Summary ---
Providers - Providers Date of Admission: 04/15/21 12:59 Date of discharge: 04/23/21 Attending physician: FAUSTINO BERNSTEIN 04/16/21 00:16 Consult to Physician [CONS] Routine Comment: Consulting Provider: LYNDON HAGEN Physician Instructions: Reason For Exam: acute encephalopathy 04/16/21 07:03 Speech Therapy Evaluation and Treat [CONS] Urgent Reason For Exam: swallowing eval/ failed bedside swallowing 04/17/21 09:30 Occupational Therapy Evaluate and Treat [CONS] Routine Comment: Reason For Exam: General debility/evaluate and treat/DC needs Physical Therapy Evaluation and Treat [CONS] Routine Comment: Reason For Exam: General debility, evaluate and treat, DC needs 04/23/21 10:17 Physical Therapy Evaluation and Treat [CONS] Stat Comment: Reason For Exam: please re-eval for PT needs Primary care physician: SEWER PIPE LAYER Hospitalization Condition: Stable Disposition: 01 HOME / SELF CARE / HOMELESS Time spent for discharge: 34 minutes Exam - Constitutional Vitals: Temp Pulse Resp BP Pulse Ox 98.1 F 79 18 153/73 95 04/23/21 08:11 04/23/21 08:11 04/23/21 08:11 04/23/21 08:11 04/23/21 08:11 Plan Activity: no driving until cleared by PCP (no driving for 6 months), fall precautions Diet: diabetic Follow up with: PRIMARY CARE, [Primary Care Provider] - 3-5 Days JACOBY CARMICHAEL MD [Staff Physician] - 7 Days Prescriptions: levETIRAcetam [Keppra] 750 mg PO BID 30 Days Insulin NPH/Regular [NovoLIN 70/30] 15 unit SUB-Q BIDDIAB 30 Days
== END 2021-04-23 14:35 | disposition home health service (06) | DRG 637 ==
LOC: ED 11:05 → 4A 12:59
PROVIDERS: ADMIT Internal Medicine; ATTEND Internal Medicine
DX: E11.65 Type 2 diabetes mellitus with hyperglycemia (principal); E43 Unspecified severe protein-calorie malnutrition; G93.41 Metabolic encephalopathy; I16.1 Hypertensive emergency; I10 Essential (primary) hypertension; G40.909 Epilepsy, unspecified, not intractable, without status epilepticus; E78.5 Hyperlipidemia, unspecified; Z82.49 Family history of ischemic heart disease and other diseases of the circulatory system; E88.09 Other disorders of plasma-protein metabolism, not elsewhere classified; Z68.29 Body mass index [BMI] 29.0-29.9, adult; Z20.822 Contact with and (suspected) exposure to COVID-19
CPT/HCPCS: 36415; 70450; 70496; 70498; 70551; 71045; 80048; 80053; 80061; 80076; 81001; 82010; 82550; 82553; 82805; 82962; 83036; 83735; 84484; 85025; 85610; 85670; 85730; 93005; 93880; 95819; G0378; J0696; J1644; J1815; J1953; J2060; J7030; Q0163; Q9967